=== PATIENT | female | born 1960 | race Caucasian/White ===

== ENCOUNTER 2019-08-20 07:15 | Outpatient (CLI) | payer OTHER, SELFPAY ==
[2019-08-20 08:07] LABS: Albumin Level 4.3 g/dL (3.5-5.1); Blood Urea Nitrogen 17 mg/dL (7-17); Calcium 9.7 mg/dL (8.4-10.2); Carbon Dioxide 28 mmol/L (22-30); Chloride 108 mmol/L (98-107); Cholesterol 208 mg/dL (0-200); Estimated Glomerular Filt Rate > 60; Glucose 76 mg/dL (65-105); LDL Cholesterol Direct 67 mg/dL; Parathyroid Intact 154.7 pg/mL (7.5-53.5); Phosphorus 2.7 mg/dL (2.5-4.5); Sodium 140 mmol/L (137-145); Triglycerides 45 mg/dL (<150)
[2019-08-20 08:11] LABS: HDL Direct 129 mg/dL
[2019-08-20 08:28] LABS: Creatinine Urine 47.7 mg/dL
[2019-08-20 08:33] LABS: MALB Creatinine Ratio 25.4 mg/g (0-30); Microalbumin Urine Random 12.1 mg/L (0-16.7)
[2019-08-20 08:44] LABS: Vitamin D 25 Hydroxy 45.3 ng/mL
[2019-08-22 17:40] LABS: Ionized Calcium 5.6 mg/dL (4.8-5.6)
== END 2019-08-20 07:16 | disposition home or self-care (01) ==
PROVIDERS: Visit Provider Internal Medicine Endocrinology, Diabetes & Metabolism
DX: E10.65 Type 1 diabetes mellitus with hyperglycemia (principal); E21.3 Hyperparathyroidism, unspecified; M81.8 Other osteoporosis without current pathological fracture
CPT/HCPCS: 36415; 80061; 80069; 82043; 82306; 82330; 83970

== ENCOUNTER 2020-10-11 07:30 | Outpatient (CLI) | payer OTHER, SELFPAY ==
[2020-10-11 08:20] LABS: Parathyroid Intact 162.4 pg/mL (7.5-53.5)
[2020-10-11 08:28] LABS: LDL Cholesterol Direct 81 mg/dL
[2020-10-11 08:29] LABS: Albumin Level 4.2 g/dL (3.5-5.1); Anion Gap 5 mmol/L (8-16); Blood Urea Nitrogen 18 mg/dL (7-17); Carbon Dioxide 28 mmol/L (22-30); Chloride 102 mmol/L (98-107); Cholesterol 255 mg/dL (0-200); Estimated Glomerular Filt Rate > 60; Glucose 127 mg/dL (65-110); Phosphorus 2.9 mg/dL (2.5-4.5); Potassium 3.7 mmol/L (3.4-5.0); Sodium 135 mmol/L (137-145); Triglycerides 52 mg/dL (<150)
[2020-10-11 08:48] LABS: Vitamin D 25 Hydroxy 32.2 ng/mL
[2020-10-11 09:15] LABS: HDL Direct 164 mg/dL
[2020-10-11 10:29] LABS: Creatinine Urine 76.8 mg/dL
[2020-10-11 10:32] LABS: Microalbumin Urine Random 14.6 mg/L (0-16.7)
== END 2020-10-11 07:31 | disposition home or self-care (01) ==
LOC: ANHLAB 07:33
PROVIDERS: Visit Provider Internal Medicine Endocrinology, Diabetes & Metabolism
DX: E10.65 Type 1 diabetes mellitus with hyperglycemia (principal); E21.3 Hyperparathyroidism, unspecified; M81.8 Other osteoporosis without current pathological fracture
CPT/HCPCS: 36415; 80061; 80069; 82043; 82306; 83970

== ENCOUNTER 2021-06-17 07:28 | Outpatient (CLI) | payer OTHER, SELFPAY ==
[2021-06-17 08:06] LABS: Albumin Level 4.1 g/dL (3.5-5.1); Anion Gap 2 mmol/L (8-16); Blood Urea Nitrogen 17 mg/dL (7-17); Carbon Dioxide 30 mmol/L (22-30); Chloride 104 mmol/L (98-107); Cholesterol 243 mg/dL (0-200); Estimated Glomerular Filt Rate > 60; Glucose 156 mg/dL (65-110); Phosphorus 2.4 mg/dL (2.5-4.5); Potassium 3.9 mmol/L (3.4-5.0); Sodium 136 mmol/L (137-145); Triglycerides 48 mg/dL (<150)
[2021-06-17 08:16] LABS: LDL Cholesterol Direct 70 mg/dL; Parathyroid Intact 130.4 pg/mL (7.5-53.5)
[2021-06-17 08:32] LABS: HDL Direct 141 mg/dL
[2021-06-17 08:59] LABS: Microalbumin Urine Random < 6.0 mg/L (0-16.7)
[2021-06-17 09:06] LABS: Vitamin D 25 Hydroxy 30.8 ng/mL
[2021-06-21 13:57] LABS: Calcium/Creatinine Ratio, Ur 210 mg/g creat (10-320); Urine Creatinine, Random 29 mg/dL (20-275)
== END 2021-06-17 07:29 | disposition home or self-care (01) ==
LOC: ANHLAB 07:30
PROVIDERS: PCP Family Medicine; Visit Provider Nurse Practitioner Family
DX: E11.65 Type 2 diabetes mellitus with hyperglycemia (principal); E21.3 Hyperparathyroidism, unspecified; E78.5 Hyperlipidemia, unspecified; M81.8 Other osteoporosis without current pathological fracture; Z79.4 Long term (current) use of insulin; Z98.890 Other specified postprocedural states
CPT/HCPCS: 36415; 80061; 80069; 82043; 82306; 82310; 82570; 83970

== ENCOUNTER 2022-02-22 23:10 | Inpatient (IN) | payer OTHER, SELFPAY ==
--- NOTE | ~2022-02-22 | CT_ITS ---
Non-contrast Head CT History: Right-sided weakness, slurred speech COMPARISON: 10/11/2004 Technique: Axial non-contrast imaging of the brain was performed. Dose reduction technique was used on this scan by utilizing automated exposure control and iterative reconstruction technique. The dose -length product (DLP) was 681.00 mGy-cm. Findings: Chronic right cerebellar infarct noted. There is a focal hyperdensity in the right cerebell um (axial image 14). No supratentorial abnormality seen. The ventricles and subarachnoid spaces are n ormal in size. The calvarium appears normal. The visualized paranasal sinuses and mastoid air cells are clear. Impression: Tiny focal hyperdensity in the right cerebellum, which could reflect focal acute hemorrhage versus ca lcification. Follow-up exam advised. Probable chronic underlying right cerebellar infarct. Reviewed, dictated and finalized at [facility]. 3 PASTRY Impression: Tiny focal hyperdensity in the right cerebellum, which could reflect focal acut e hemorrhage versus calcification. Follow-up exam advised. Probable chronic underlying right cerebellar infarct.
--- NOTE | ~2022-02-22 | CT_ITS ---
Non-contrast Head CT History: Intracranial hemorrhage COMPARISON: 02/22/2022 Technique: Axial non-contrast imaging of the brain was performed. Dose reduction technique was used on this scan by utilizing automated exposure control and iterative reconstruction technique. The dose -length product (DLP) was 681.00 mGy-cm. Findings: The focal hyperdensity in the right cerebellar hemisphere presumably minimally increased fr om prior exam. Stable probable underlying chronic right cerebellar infarct. Again, no supratentorial abnormality identified. The ventricles and subarachnoid spaces are normal in size. The calvarium khadra ears normal. The visualized paranasal sinuses and mastoid air cells are clear. Impression: Suspected minimal interval increase in the focal hyperdensity in the right cerebellar hemisphere, whi ch could reflect a focal hemorrhage given suspected interval change. There is now measures up to 7 mm in diameter. Additional follow-up exam advised. Reviewed, dictated and finalized at [facility]. ON CLERK Impression: Suspected minimal interval increase in the focal hyperdensity in the right cere bellar hemisphere, which could reflect a focal hemorrhage given suspected inter pattie change. There is now measures up to 7 mm in diameter. Additional follow-up exam advised.
--- NOTE | ~2022-02-22 | CT_ITS ---
CT ANGIOGRAM NECK AND HEAD History: Right arm weakness, dysarthria. Technique: Serial spiral axial images through the head and neck were obtained during arterial phase I V injection of 100 cc of Omnipaque 350. 3-D postprocessing and MIP images were then reconstructed on the remote workstation. Dose reduction technique was used on this scan by utilizing automated exposur e control and iterative reconstruction technique. The dose-length product (DLP) was 898.59 mGy-cm. CTA neck findings: Bilateral common carotid, internal carotid, and external carotid arteries are pat ent. The proximal right internal carotid artery demonstrates 0% stenosis relative to the normal dista l artery lumen diameter. The proximal left internal carotid artery demonstrates 0% stenosis relative to the normal distal artery lumen diameter. Bilateral vertebrals are patent, with relatively hypoplastic right vertebral artery. Evidence of prior right hemithyroidectomy. CTA head findings: Distal internal carotid arteries, middle cerebral arteries, anterior cerebral graciela anastasiia are patent. Suggestion 2 mm aneurysm at the junction of the anterior communicating artery and th e left anterior cerebral artery. Basilar artery and posterior cerebral arteries are patent. No stenos is or large vessel occlusion. Impression: No stenosis or large vessel occlusion. 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 Reviewed, dictated and finalized at location . MEL SELECTOR Impression: No stenosis or large vessel occlusion. 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
--- NOTE | ~2022-02-22 | MR_ITS ---
MRI of the brain Clinical History: Cerebellar hemorrhage Technique: Axial and sagittal T1-weighted images were acquired. These were followed by axial T2-weigh mayra, diffusion weighted, gradient, and FLAIR images. Following intravenous administration of 9 cc Mul tiHance gadolinium, T1-weighted fat-sat imaging was performed in the axial and coronal planes. Findings: There is a 1 cm area of restricted diffusion in the left periventricular white matter, comp atible with an acute infarct (series 3 image 19 for example). There are additional mild scattered are as of FLAIR hyperintensity in the white matter, compatible mild chronic microvascular ischemic change . Chronic right cerebellar infarcts are noted, with intrinsic T1 hyperintensity about the infarct. No d istinct susceptibility artifact corresponding to the CT finding. Ventricles and subarachnoid spaces are unremarkable. Orbits are unremarkable. Paranasal sinuses and m astoid air cells are clear. Major intracranial flow voids appear intact. Sagittal midline structures are intact. No abnormal postcontrast enhancement identified. IMPRESSION: 1 cm acute infarct in the left periventricular matter. Chronic right cerebellar infarct. Focal hyperdensity seen on CT is felt to most likely reflect focal dystrophic calcification and/or chronic focal hemorrhagic material related to the prior infarct rathe r than acute hemorrhage. Consider additional short-term follow-up CT scan. Interval change between th e [address] scans may been due to slice selection/patient positioning given the small size of the f inding. Mild chronic white matter changes. Reviewed, dictated and finalized at location [facility]. ER IMPRESSION: 1 cm acute infarct in the left periventricular matter. Chronic right cerebellar infarct. Focal hyperdensity seen on CT is felt to most likely reflect focal dystrophic calcification and/or chronic focal hemorrhagic material related to the prior infarct rather than acute hemorrhage. Consider a dditional short-term follow-up CT scan. Interval change between the [address] scans may been due to slice selection/patient positioning given the small size of the finding. Mild chronic white matter changes.
--- NOTE | 2022-02-22 23:14 | ED.NEUROSD ---
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 LKW 45 minutes prior to arrival. The report patient appears to be improving. Patient states she does feel some weakness in the right arm but has no other complaints. <Gildardo De Leon MD - Last Filed: 02/23/22 07:42> Related Data Home Medications: Home Medications Medication Instructions Recorded Confirmed famotidine 20 mg tablet (Pepcid) 20 mg PO DAILY 02/23/19 03/03/21 lancets 33 gauge (BD Ultra Fine #100 ea 02/23/19 03/03/21 Lancets) vitamins A,C,D-hqpl-hgafri 14,320 1 cap PO BID 02/23/19 03/03/21 unit-226 mg-200 unit capsule (PreserVision AREDS) cholecalciferol (vitamin D3) 50 50 mcg PO DAILY 12/11/19 03/03/21 mcg (2,000 unit) capsule multivitamin 1 tablet PO DAILY 12/11/19 03/03/21 omega-3 fatty acids 1,000 mg 1,000 mg PO DAILY 03/03/21 03/03/21 capsule (Fish Oil Concentrate) fluticasone propionate 50 1 spray intranasal DAILY 06/09/21 mcg/actuation nasal spray,suspension (Flonase Allergy Relief) <Gildardo De Leon MD - Last Filed: 02/23/22 07:42> Allergies/Adverse Reactions: Allergies Allergy/AdvReac Type Severity Reaction Status Date / Time No Known Allergies Allergy Verified 06/09/21 08:04 <Gildardo De Leon MD - Last Filed: 02/23/22 07:42> Review of Systems Review of Systems: CONSTITUTIONAL: Denies fever, chills, or sweats. EYES: Denies visual changes, redness, or discharge. ENT: Denies rhinorrhea, congestion, sore throat, or otalgia. CARDIOVASCULAR: Denies chest pain, palpitations, or edema. RESPIRATORY: Denies cough or dyspnea. GASTROINTESTINAL: Denies abdominal pain, nausea, vomiting, or diarrhea. GENITOURINARY: Denies dysuria or hematuria. SKIN: Denies rash or itching. MUSCULOSKELETAL: Denies back pain, joint pain, or myalgia. NEUROLOGIC: Right arm weakness, slurred speech - improvin denies headache, numbness, dizziness, PSYCHIATRIC: Denies anxiety or depression. <Gildardo De Leon MD - Last Filed: 02/23/22 07:42> [facility] Past Medical History Medical History: Medical History Cancer of retina of right eye Chronic GERD Essential (primary) hypertension Hypothyroidism Kidney stones Osteoporosis Type 1 diabetes mellitus Type 2 diabetes mellitus with hyperglycemia <Gildardo De Leon MD - Last Filed: 02/23/22 07:42> Surgical History Surgical History: Surgical History H/O thyroidectomy History of bladder surgery History of eye surgery no right eye History of hysterectomy <Gildardo De Leon MD - Last Filed: 02/23/22 07:42> Family History Family History: Family History Other Family history of malignant neoplasm of urinary bladder <Gildardo De Leon MD - Last Filed: 02/23/22 07:42> Social History Social History: Social History Second hand tobacco smoke exposure: No Alcohol intake: current Alcohol use details: occasional Substance use: never 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
[2022-02-22 23:21] LABS: Glucose Point of Care 266 mg/dl (65-105)
[2022-02-22 23:24] VITALS: BP 150/89; PULSE 91; RESP 14; TEMP 36.8; O2SAT 99
[2022-02-22 23:32] VITALS: O2SAT 98
--- NOTE | 2022-02-22 23:43 | PC.NURSE ---
Per VORB EDEusebia De Leon, give 10mg IV push Labetalol STAT. Target BP under 140s systolic.
--- NOTE | 2022-02-22 23:43 | PC.NURSE ---
Per EDP Moises, give 10mg IV push Labetalol. Target systolic BP 140s.
[2022-02-22] MEDS: LABETALOL HCL INJ 100 MG/20 ML VIAL 10 MG IV PUSH (23:47)
[2022-02-22 23:52] LABS: Basophils Absolute Auto 0.1 K/mm3 (0.0-0.1); Eosinophils Absolute Auto 0.1 K/mm3 (0-0.3); Eosinophils Percent Auto 1.5 % (0-4.4); Hematocrit 36.2 % (37.0-47.0); Immature Granulocyte Absolute 0.02 K/mm3 (0.00-0.031); Immature Granulocyte Percent A 0.2 % (0-0.5); Lymphocytes Absolute Auto 3.28 K/mm3 (0.9-3.2); Lymphocytes Percent Auto 36.2 % (18.3-44.2); Mean Corpuscular HGB Conc 33.1 g/dl (32-36); Mean Corpuscular Hemoglobin 32.7 pg (26-34); Mean Corpuscular Volume 98.6 fl (80-100); Mean Platelet Volume 9.2 fl (7.4-10.4); Monocytes Absolute Auto 0.8 K/mm3 (0.1-0.6); Monocytes Percent Auto 9.3 % (2.6-8.5); Neutrophils Absolute Auto 4.7 K/mm3 (1.3-6.7); Neutrophils Percent Auto 51.8 % (45.5-73.1); Platelet Count Result 380 k/mm3 (150-375); Red Blood Count 3.67 M/mm3 (4.2-5.4); Red Cell Distribution Width 13.9 % (11.5-14.5); White Blood Count 9.1 K/mm3 (4.5-10.0)
[2022-02-23] VITALS (46 sets, daily range): BP systolic 117–164; BP diastolic 55–87; PULSE 71–89; RESP 11–20; O2SAT 97–100
[2022-02-23 00:03] LABS: Alanine Aminotransferase 24 U/L (6-35); Albumin Level 4.3 g/dL (3.5-5.1); Alkaline Phosphatase 72 U/L (38-126); Anion Gap 6 mmol/L (8-16); Aspartate Amino Transferase 33 U/L (14-36); Bilirubin,Total 0.4 mg/dL (0.2-1.3); Blood Urea Nitrogen 22 mg/dL (7-17); Calcium 9.9 mg/dL (8.4-10.2); Carbon Dioxide 29 mmol/L (22-30); Chloride 101 mmol/L (98-107); Estimated Glomerular Filt Rate > 60; Glucose 229 mg/dL (65-110); Potassium 3.5 mmol/L (3.4-5.0); Sodium 136 mmol/L (137-145)
[2022-02-23 00:07] LABS: Ethanol < 10 mg/dL (<10)
[2022-02-23 00:14] LABS: Troponin I < 0.012 ng/mL (0.000-0.034)
[2022-02-23 00:18] LABS: Prothrombin Time 12.6 Seconds (11.1-14.7)
[2022-02-23 00:19] LABS: Partial Thromboplastin Time 33.6 SECONDS (22.3-36.8)
[2022-02-23 00:28] LABS: Influenza A QL RT-PCR Negative (Negative); Influenza B QL RT-PCR Negative (Negative); RSV RNA, RT-PCR Negative (Negative); SARS-CoV-2 RNA PCR Negative
[2022-02-23 02:28] LABS: Add Urine Microscopic? YES; Appearance Urine Clear (Clear); Bilirubin Urine 1+ (Negative); Blood Urine Negative (Negative); Color Urine Light Yellow (Yellow); Glucose Urine UA 3+ mg/dL (Negative); Ketones Urine 1+ mg/dL (Negative); Leukocyte Esterase Ur Negative LEU/UL (Negative); Nitrate Urine Negative (Negative); Protein Urine Negative (Negative); Specific Grav Ur 1.015 (1.001-1.035); Urobilinogen Urine 0.2 mg/dL (<2.0)
[2022-02-23 02:39] LABS: Amphetamine Screen Urine Negative (Negative); Barbiturate Screen Urine Negative (Negative); Benzodiazepines Screen Urine Negative (Negative); Cannabinoid Screen Urine Negative (Negative); Cocaine Screen Urine Negative (Negative); Methadone Screen Urine Negative (Negative); Opiate Screen Urine Negative (Negative); Phencyclidine Screen Urine Negative (Negative)
--- NOTE | 2022-02-23 02:59 | PC.NURSE ---
Report given to Jace MAGALLANES
[2022-02-23 03:07] LABS: Bacteria Urine Trace /hpf; Mucus Urine Rare /lpf; Squamous Epithelial Cell Urine Moderate /hpf (Few); WBC Urine 31-50 /hpf
--- NOTE | 2022-02-23 03:34 | ECG_ITS ---
Measurements Intervals Morgan Rate: 88 P: 59 LA: 130 QRS: 91 QRSD: 131 T: 4 QT: 377 QTc: 458 Interpretive Statements SINUS RHYTHM LEFT ATRIAL ENLARGEMENT RIGHT BUNDLE BRANCH BLOCK T-WAVE ABNORMALITY, CONSIDER ANTEROLATERAL ISCHEMIA ABNORMAL ECG NO PREVIOUS ECG AVAILABLE FOR COMPARISON Electronically Signed On 02-23-2022 17:43:57 STAVE LOG RIPSAW OPERATOR by Trevor Pandya M.D.
--- NOTE | 2022-02-23 06:10 | PC.NURSE ---
called [facility] transfer center for a status check. Per Abby - There is no bed assigned yet and [facility] is still at capacity. Will be waiting on discharges.
--- NOTE | 2022-02-23 12:22 | PC.NURSE ---
Spoke with Kasandra at [facility] with updated VS. Pt is still on waiting list for bed on step down unit.
--- NOTE | 2022-02-23 12:22 | PC.NURSE ---
called at 1217 still wating for step down bed.
[2022-02-23] MEDS: ACETAMINOPHEN 500 MG TABLET 1000 MG PO (18:06)
[2022-02-23 18:13] LABS: Glucose Point of Care 182 mg/dl (65-105)
[2022-02-23] MEDS: INSULIN GLARGINE (*BKC) 100 UNITS/ML 12 UNITS SUB-Q (22:13)
[2022-02-24] VITALS (8 sets, daily range): BP systolic 118–179; BP diastolic 63–99; PULSE 68–84; RESP 14–20; TEMP 36.1–36.4; O2SAT 97–100
--- NOTE | 2022-02-24 02:59 | PC.NURSE ---
Nurse report given to Salud MAGALLANES
--- NOTE | 2022-02-24 08:45 | PC.NURSE ---
Patient off unit to MRI.
[2022-02-24 10:16] LABS: Glucose Point of Care 255 mg/dl (65-105)
--- NOTE | 2022-02-24 11:07 | PC.NURSE ---
Patient report given to SONA Giraldo. All questions answered and care of patient transferred.
[2022-02-24] MEDS: CHOLECALCIFEROL 1,000 UNITS TABLET 2000 UNITS PO (11:16)
[2022-02-24] MEDS: ROSUVASTATIN 5 MG TABLET PO (11:17)
[2022-02-24] MEDS: ASPIRIN 81 MG ENTERIC TABLET PO (11:17)
[2022-02-24] MEDS: MULTIVITAMINS THERAPEUTIC TAB (*BKC) 1 TABLET PO (11:17)
[2022-02-24 11:25] LABS: Cholesterol 259 mg/dL (0-200); Triglycerides 165 mg/dL (<150)
[2022-02-24] MEDS: INSULIN ASPART (*BKC) 100 UNITS/ML SUB-Q ×4 (11:29→17:19)
[2022-02-24] MEDS: ASPIRIN 81 MG CHEWABLE TABLET 324 MG PO (11:30)
[2022-02-24 11:35] LABS: LDL Cholesterol Direct 103 mg/dL
[2022-02-24 12:49] LABS: Glucose Point of Care > 500 mg/dl (65-105)
[2022-02-24 12:49] LABS: Glucose Point of Care 477 mg/dl (65-105)
--- NOTE | 2022-02-24 12:51 | PM.IMHP ---
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 She did have any weakness in the legs or on the left side of the body. She does not have any history of stroke in the past. Her NIH SS scale was 2. CT brain showed chronic appearing right cerebellar ischemic stroke with 6 mm hyperdensity concerning for hemorrhage. CTA was done which showed no evidence of vessel occlusion. 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 Repeat CT head concerning for slightly enlarged hypodensity in the cerebellum now measuring 7 mm. See was planned to go to [facility] for intracerebral bleed. While waiting for the bed she had MRI of the brain done which showed her hyperdensity is related to focal dystrophic calcification and are chronic focal hemorrhagic material related to prior infarct breath with an acute hemorrhage. She was noted to have 1 cm acute infarct in the left periventricular matter. She is planned to be admitted here instead for further evaluation and management. Review of Systems Review of Systems: - CONSTITUTIONAL: Denies weight loss, fever and chills. - HEENT: Denies changes in vision and hearing - RESPIRATORY: Denies SOB and cough. - CV: Denies palpitations and CP. - GI: Denies abdominal pain, nausea, vomiting and diarrhea. - : Denies dysuria and urinary frequency. - MSK: Denies myalgia and joint pain. - SKIN: Denies rash and pruritus. - NEUROLOGICAL: Denies headache and syncope. Reports right-sided upper extremity numbness and weakness - PSYCHIATRIC: Denies recent changes in mood. Denies anxiety and depression. [facility] Past Medical History Medical History Cancer of retina of right eye Chronic GERD Essential (primary) hypertension Hypothyroidism Kidney stones Osteoporosis Type 1 diabetes mellitus Type 2 diabetes mellitus with hyperglycemia Surgical History Surgical History H/O thyroidectomy History of bladder surgery History of eye surgery no right eye History of hysterectomy Family History Family History Other Family history of malignant neoplasm of urinary bladder Social History Social History Second hand tobacco smoke exposure: No Alcohol intake: current Alcohol use details: occasional Substance use: never 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[employer] Gender identity (if verbalized by the patient): Female Meds Home Medications and Allergies Home Medications Medication Instructions Recorded Confirmed Type famotidine 20 mg tablet (Pepcid) 20 mg PO BID 02/23/19 02/24/22 History lancets 33 gauge (BD Ultra Fine #100 ea 02/23/19 03/03/21 History Lancets) cholecalciferol (vitamin D3) 50 50 mcg PO DAILY 12/11/19 02/24/22 History mcg (2,000 unit) capsule multivitamin 1 tablet PO DAILY 12/11/19 02/24/22 History blood sugar diagnostic (ReliOn #400 ea 03/03/21 03/03/21 Rx Prime Test Strips) lancets #400 ea 03/03/21 03/03/21 Rx rosuvastatin 5 mg tablet 5 mg PO DAILY #90 tabs 03/03/21 02/24/22 Rx valsartan 40 mg tablet 40 mg PO BID 90 days #180 tabs 03/03/21 02/24/22 Rx flash glucose sensor (FreeStyle #6 ea 03/13/21 Rx Shun 2 Sensor kit) fluticasone propionate 50 1 spray intranasal DAILY PRN 06/09/21 02/24/22 History mcg/actuation nasal All
[2022-02-24 12:59] LABS: HDL Direct 117 mg/dL
--- NOTE | 2022-02-24 12:59 | PC.NURSE ---
Dr. Castillo made aware of pt's blood sugar of [address] Castillo, to give 4 more units of Novolog. VORB.
[2022-02-24 14:10] LABS: Hemoglobin A1C 8.7 % (<5.7)
--- NOTE | 2022-02-24 14:19 | ADMGEN ---
This patient, Paulette Ott, was admitted to [facility] Surg Room 310-01. Patient/family oriented to hospital policies and general routines including ID bracelet, bed and alarms, visiting hours, pain management, procedures, bathroom and other care routines, personal items, smoking policy, room service/diet, and visiting hours. Information on how to activate the Rapid Response Team has been discussed. Patient/Family are encouraged to report perceived risks to care and to ask questions if they do not understand what they are told or what they should do.
[2022-02-24 15:18] LABS: Glucose Point of Care 331 mg/dl (65-105)
[2022-02-24] MEDS: VALSARTAN 40 MG TABLET PO (16:28)
[2022-02-24] MEDS: FAMOTIDINE 20 MG TABLET PO (16:28)
[2022-02-24 16:36] LABS: Glucose Point of Care 332 mg/dl (65-105)
[2022-02-24] MEDS: INSULIN GLARGINE (*BKC) 100 UNITS/ML 12 UNITS SUB-Q (21:04)
[2022-02-24] MEDS: ROSUVASTATIN 10 MG TABLET 20 MG PO (21:04)
[2022-02-25] VITALS (9 sets, daily range): BP systolic 113–146; BP diastolic 60–80; PULSE 77–101; RESP 14–20; TEMP 35.6–36.8; O2SAT 94–97
[2022-02-25 07:04] LABS: Basophils Absolute Auto 0.1 K/mm3 (0.0-0.1); Basophils Percent Auto 0.8 % (0.2-1.2); Eosinophils Absolute Auto 0.1 K/mm3 (0-0.3); Eosinophils Percent Auto 1.3 % (0-4.4); Hematocrit 37.4 % (37.0-47.0); Hemoglobin 12.5 g/dL (12.0-15.0); Immature Granulocyte Absolute 0.02 K/mm3 (0.00-0.031); Immature Granulocyte Percent A 0.2 % (0-0.5); Lymphocytes Absolute Auto 2.73 K/mm3 (0.9-3.2); Mean Corpuscular HGB Conc 33.4 g/dl (32-36); Mean Corpuscular Hemoglobin 33.2 pg (26-34); Mean Corpuscular Volume 99.2 fl (80-100); Mean Platelet Volume 9.4 fl (7.4-10.4); Monocytes Absolute Auto 0.8 K/mm3 (0.1-0.6); Monocytes Percent Auto 9.2 % (2.6-8.5); Neutrophils Absolute Auto 4.6 K/mm3 (1.3-6.7); Neutrophils Percent Auto 55.5 % (45.5-73.1); Platelet Count Result 382 k/mm3 (150-375); Red Blood Count 3.77 M/mm3 (4.2-5.4); Red Cell Distribution Width 13.7 % (11.5-14.5); White Blood Count 8.3 K/mm3 (4.5-10.0)
[2022-02-25 07:11] LABS: Alanine Aminotransferase 22 U/L (6-35); Albumin Level 4.1 g/dL (3.5-5.1); Alkaline Phosphatase 68 U/L (38-126); Anion Gap 7 mmol/L (8-16); Aspartate Amino Transferase 26 U/L (14-36); Bilirubin,Total 0.4 mg/dL (0.2-1.3); Blood Urea Nitrogen 11 mg/dL (7-17); Calcium 9.4 mg/dL (8.4-10.2); Carbon Dioxide 27 mmol/L (22-30); Chloride 105 mmol/L (98-107); Estimated Glomerular Filt Rate > 60; Glucose 108 mg/dL (65-110); Magnesium 1.6 mg/dL (1.6-2.3); Potassium 3.6 mmol/L (3.4-5.0); Sodium 139 mmol/L (137-145)
[2022-02-25 07:19] LABS: Glucose Point of Care 112 mg/dl (65-105)
[2022-02-25] MEDS: INSULIN ASPART (*BKC) 100 UNITS/ML SUB-Q ×5 (08:18→17:25)
[2022-02-25] MEDS: VALSARTAN 40 MG TABLET PO ×2 (08:19→17:26)
[2022-02-25] MEDS: FAMOTIDINE 20 MG TABLET PO ×2 (08:19→17:25)
[2022-02-25] MEDS: CHOLECALCIFEROL 1,000 UNITS TABLET 2000 UNITS PO (08:19)
[2022-02-25] MEDS: MULTIVITAMINS THERAPEUTIC TAB (*BKC) 1 TABLET PO (08:20)
[2022-02-25] MEDS: ASPIRIN 81 MG ENTERIC TABLET PO (08:20)
[2022-02-25 12:02] LABS: Glucose Point of Care 254 mg/dl (65-105)
--- NOTE | 2022-02-25 13:06 | WPDNEURCNPN ---
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 Diabetes mellitus 3. Hyperlipidemia will need a cardiac studies as planned and also discussion about the aneurysm with the patient and the family for further clarification. Consult date: 02/25/22 HPI: Paulette Ott is a 61 year old female admitted to the hospital through the emergency room for the complaints of possible cerebrovascular accident in addition to the history of underlying 1. Diabetes mellitus 2. Hypertension 3. Hyperlipidemia. 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 She does have ongoing history of cancer of the retina of the right eye and is blind in her right eye in addition to the history of diabetes mellitus, and hypothyroidism. She drinks alcohol only occasionally on initial examination in the ER she was noted to have 4/5 strength in the right upper extremity with normal vital signs normal routine lab but blood sugar of 229 screening for the influenza is 80 be RSV and starts COVID were negative psoas the drug screen. The CT scan of the head documented suspected minimal interval increase in the frontal hyperdensity in the right cerebellar hemisphere raising the possibility of focal hemorrhage of up to 7mm in diameter and this study has been followed by the MRI of the head today which documented 1cm acute infarct in left periventricular matter with chronic right cerebellar infarct and the hypodensity seen on CT scan reflected dystrophic calcification a chronic focal hemorrhagic material related to the previous infarct Review of Systems Review of Systems: All systems reviewed & are unremarkable except as noted in HPI and below PMFSH Past Medical History Medical History Cancer of retina of right eye Chronic GERD Essential (primary) hypertension Hypothyroidism Kidney stones Osteoporosis Type 1 diabetes mellitus Type 2 diabetes mellitus with hyperglycemia Surgical History Surgical History H/O thyroidectomy History of bladder surgery History of eye surgery no right eye History of hysterectomy Family History Family History Other Family history of malignant neoplasm of urinary bladder Social History Social History Smoking status: Former smoker Second hand tobacco smoke exposure: No Additional smoking assessment comments: smoked off and on for years Alcohol intake: current Drinks per week: 1 Alcohol use details: occasional Substance use: never Substance use type: does not use Lack of Transportation: No Lack of Food: Never True Current Housing: I Have Housing Concerned About Future Housing: No Difficulty Paying Gas/Electric Bills: No Difficulty Paying for Meds: No Currently Unemployed: No Education: Bachelor's Degree Difficulty w/ Childcare or Family Care: No 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
--- NOTE | 2022-02-25 14:05 | PM.IMPN ---
Progress Note: A&P Assessment and Plan (1) Right arm weakness: Code(s): R29.898 - Other symptoms and signs involving the musculoskeletal system Status: Acute (2) Dysarthria: Code(s): R47.1 - Dysarthria and anarthria Status: Acute (3) Acute ischemic stroke: Code(s): I63.9 - Cerebral infarction, unspecified Status: Acute (4) Type 1 diabetes mellitus: Qualifiers: Diabetes mellitus complication status: with hyperglycemia Qualified Code(s): E10.65 - Type 1 diabetes mellitus with hyperglycemia Code(s): E10.9 - Type 1 diabetes mellitus without complications Status: Acute (5) Cerebellar infarction: Code(s): I63.9 - Cerebral infarction, unspecified Status: Acute Plan Acute left periventricular matter infarction: Initially suspected right cerebellar hemorrhage with hyperdensity. Brain MRI suggest focal dystrophic calcification and or are chronic focal hemorrhagic material related to prior infarct rather than acute hemorrhage. Started on aspirin 325 mg followed by aspirin 81 mg daily. Neurology to see. Echo pending CTA head and neck with no stenosis or large vessel occlusion. Aspirin and Crestor as ordered. Probable 2 mm aneurysm at the junction of anterior communicating artery and left anterior cerebral artery. Need follow-up as an outpatient basis Type 1 diabetes mellitus: Continue Lantus and lispro with 6 SSI Hypertension valsartan to continue blood pressure not at goal. Will add amlodipine 5 mg daily Hyperlipidemia on rosuvastatin 5 mg will increase to 20 mg. LDL is 103. Total cholesterol 259 and triglyceride 165. DVT prophylaxis: SCDs Subjective Date/time seen: 02/25/22 14:05 Interval history: No overnight events. Right and the little stronger still weak though. Discussed with Neurology. Review of Systems Review of Systems: All systems reviewed & are unremarkable except as noted in HPI and below Exam Narrative: GENERAL: thin built, well-nourished, and in no acute distress. HEAD: Normocephalic, atraumatic. EYES:Left eye? PRRLA and EOMI. Right eye false with small amount of mucoid drainage, no noted erythema ENT: Nares clear, no rhinorrhea or epistaxis.? NECK: Supple.? No adenopathy or masses.? No carotid bruits or JVD CHEST: Clear to auscultation.? No respiratory distress.? No wheezes rales or rhonchi HEART: Regular rate and rhythm.? No murmur heard.? Normal peripheral pulses. ABDOMEN: Soft, nontender, nondistended, normal active bowel sounds. EXTREMITIES: Normal range of motion.? No edema. SKIN: Warm, dry, no rash. 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 PSYCH: Normal mood and affect Objective Data Vital Signs Vital Signs: Vital Signs - 24 hr 02/24/22 14:47 02/24/22 16:00 02/24/22 16:00 Temperature Pulse Rate 81 81 Respiratory Rate Blood Pressure Pulse Oximetry Oxygen Delivery Room Air 02/24/22 16:00 02/24/22 21:31 02/24/22 20:00 Temperature 97.0 F L Pulse Rate 83 73 Respiratory Rate 14 Blood Pressure 149/73 H 124/71 Pulse Oximetry 100 Oxygen Delivery 02/25/22 00:00 02/25/22 05:58 02/25/22 10:26 Temperature 98.3 F Pulse Rate 83 96 Respiratory Rate 14 Blood Pressure 146/80 H Pulse Oximetry 96 96 Oxygen Delivery Room Air Intake/Output Intake/Output: Intake & Output 02/22/22 02/23/22 02/24/22 02/25/22 23:59 23:59 23:59 23:59 Intake Total 240 1460 Balance 240 1460 Meds/Results Medications: Active Medications Generic Name Dose Route Start Last Admin Trade Name Freq PRN Reason Stop Dose Admin Acetaminophen 650 mg 02/24/22 05:48 Acetaminophen 325 Mg Tablet PO Q4H PRN Mild Pain (1-3) or Fever Hydrocodone Bitart/Acetaminophen 1 tab 02/24/22 05:48 Hydrocodone/Acetaminophen (*Crx) 5-325 Mg Tablet PO Q4H PRN Pain Rated 4-6 Aspirin 81 mg 02/24
[2022-02-25] MEDS: amLODIPine BESYLATE 5 MG TABLET PO (14:52)
[2022-02-25 16:45] LABS: Glucose Point of Care 206 mg/dl (65-105)
[2022-02-25] MEDS: ROSUVASTATIN 10 MG TABLET 20 MG PO (20:19)
[2022-02-25] MEDS: INSULIN GLARGINE (*BKC) 100 UNITS/ML 12 UNITS SUB-Q (20:26)
[2022-02-25 21:27] LABS: Glucose Point of Care 123 mg/dl (65-105)
[2022-02-26] VITALS (7 sets, daily range): BP systolic 113–120; BP diastolic 67–70; PULSE 65–90; RESP 16–18; TEMP 36.6; O2SAT 97–99
--- NOTE | 2022-02-26 | ECHO_ITS ---
Patient Info Name: Paulette Ott Age: 61 years : 1960 Gender: Female Ht: 58 in Wt: 105 lbs BSA: 1.40 m2 HR: 83 bpm BP: 146 / 80 mmHg Heart Rhythm: Sinus Rhythm Technical Quality: Good Exam Date: 02/26/2022 10:56 AM Exam Location: [facility] Patient Status: Inpatient Admit Date: 02/24/2022 Staff Ordering Physician: Austyn Castillo MD Network Development Coordinator: Yanna Vilchis RDCS Attending Provider: Austyn Castillo MD Exam Type: CA echo doppler color flow Study Info Indications - STROKE Complete two-dimensional, color flow and Doppler transthoracic echocardiogram is performed. Summary 1. Complete two-dimensional, color flow and Doppler transthoracic echocardiogram is performed. 2. Normal left ventricular size and systolic function. 3. Diastolic noncompliance grade 1. 4. No valvular dysfunction. Left Ventricle Left ventricular chamber dimension is normal. Left ventricular systolic function is hyperdynamic, estimated at >70%. Left ventricular septal wall motion is abnormal with septal motion related to bundle branch block. The left ventricular diastolic function is grade I diastolic dysfunction. Right Ventricle Right ventricular chamber dimension is normal. Left Atria Left atrial chamber dimension is normal. Right Atria Right atrial chamber dimension is normal. Aortic Valve The aortic valve is normal. Pulmonic Valve The pulmonic valve is not well visualized. Mitral Valve The mitral valve has normal leaflets. There is no mitral valve regurgitation. Tricuspid Valve The tricuspid valve leaflets are normal. Pericardium/Pleural The pericardium appears normal. Aorta The aortic root size at the sinus of Valsalva is normal. Left Ventricular Outflow Tract Name Value Normal LVOT 2D LVOT Diameter 2.0 cm LVOT Doppler LVOT Peak Gradient 7 mmHg LVOT Mean Gradient 3 mmHg LVOT VTI 21 cm LVOT VTI/AV VTI Ratio 0.8 LVOT Stroke Volume 66 ml LVOT CO 15.3 l/min LVOT CI 11.1 l/min/m2 Pulmonic Valve Name Value Normal PV Doppler PV Peak Gradient 6 mmHg Mitral Valve Name Value Normal MV Doppler MV Decel [place] 314 cm/s2 MV PHT 69 ms MV Area (PHT) 3.2 cm2 4.0-5.0 MV Diastolic Function
[2022-02-26 08:46] LABS: Glucose Point of Care 234 mg/dl (65-105)
[2022-02-26] MEDS: INSULIN ASPART (*BKC) 100 UNITS/ML SUB-Q ×5 (09:03→17:20)
[2022-02-26] MEDS: VALSARTAN 40 MG TABLET PO ×2 (09:05→17:21)
[2022-02-26] MEDS: MULTIVITAMINS THERAPEUTIC TAB (*BKC) 1 TABLET PO (09:06)
[2022-02-26] MEDS: FAMOTIDINE 20 MG TABLET PO ×2 (09:06→17:21)
[2022-02-26] MEDS: CHOLECALCIFEROL 1,000 UNITS TABLET 2000 UNITS PO (09:06)
[2022-02-26] MEDS: amLODIPine BESYLATE 5 MG TABLET PO (09:06)
[2022-02-26] MEDS: ASPIRIN 81 MG ENTERIC TABLET PO (09:06)
[2022-02-26 11:58] LABS: Glucose Point of Care 427 mg/dl (65-105)
--- NOTE | 2022-02-26 14:03 | WPDNEUROLOGY ---
Neurology EEG Report General Information Date of Study: 02/26/22 TEST EEG DIAGNOSIS cerebellar hemorrhage CONDITION OF RECORDING awake drowsy and sleep EEG NUMBER [id number] CLINICAL HISTORY patient reports she came into hospital couple of days ago with slurred speech, confusion and right upper extremity weakness though she feels better now is still just a little weakness of the right upper extremity EEG DESCRIPTION basic resting occipital frequency consists of low to medium voltage 9 to 11 hertz per 2nd alpha admixed with low-voltage 15 to 18 hertz per 2nd beta intermittently. Low-voltage beta activity seen diffusely admixed waxing and waning posterior alpha rhythm. Bilateral symmetrical sleep activity seen during sleep. Intermittent 3 to 4 hertz per 2nd low-voltage delta activities noted bilaterally. Hyperventilation not done. Photic stimulation not done. Non paroxysmal. Nonfocal. Nonlateralizing. IMPRESSION Abnormal record due to the presence of bihemispheric slow activity but without evidence of any paroxysmal discharge. This abnormality could be consistent with either focal structure lesion or postictal state again clinical correlation recommended
[2022-02-26 16:44] LABS: Glucose Point of Care 162 mg/dl (65-105)
--- NOTE | 2022-02-26 18:50 | PM.DS ---
DS: Admitting Diagnosis Discharge Date 02/26/2022 Admitting Diagnosis Right-sided weakness DS: Discharge Diagnosis Discharge Diagnosis (1) Right arm weakness: Code(s): R29.898 - Other symptoms and signs involving the musculoskeletal system Status: Acute (2) Dysarthria: Code(s): R47.1 - Dysarthria and anarthria Status: Acute (3) Acute ischemic stroke: Code(s): I63.9 - Cerebral infarction, unspecified Status: Acute (4) Type 1 diabetes mellitus: Qualifiers: Diabetes mellitus complication status: with hyperglycemia Qualified Code(s): E10.65 - Type 1 diabetes mellitus with hyperglycemia Code(s): E10.9 - Type 1 diabetes mellitus without complications Status: Acute (5) Cerebellar infarction: Code(s): I63.9 - Cerebral infarction, unspecified Status: Acute DS: Summary Hospital Course Hospital Course: Acute left periventricular matter infarction:? Initially suspected right cerebellar hemorrhage with hyperdensity.? Brain MRI suggest focal dystrophic calcification and or are chronic focal hemorrhagic material related to prior infarct rather than acute hemorrhage.? Started on aspirin 325 mg followed by aspirin 81 mg daily.? Neurology to see.? Echo with no PFO or thrombus. CTA head and neck with no stenosis or large vessel occlusion.? 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 She will continue on aspirin and Crestor. Crestor dose was increased to reach to her goal LDL of less than 70. 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 Need follow-up as an outpatient basis Type 1 diabetes mellitus:? Continue Lantus and lispro with 6 SSI. Follow with hand alterations tailor as previously scheduled Hypertension valsartan to continue blood pressure not at goal.? Added on amlodipine 5 mg daily. Continue to monitor blood pressure with a goal of less than 130 over Hyperlipidemia on rosuvastatin 5 mg will increase to 20 mg.? LDL is 103.? Total cholesterol 259 and triglyceride 165. DVT prophylaxis: SCDs Time Spent with Patient Time attestation: Total time spent providing and/or coordinating discharge services: 40 minutes Exam Narrative: GENERAL: thin built, well-nourished, and in no acute distress. HEAD: Normocephalic, atraumatic. EYES:Left eye? PRRLA and EOMI. Right eye false with small amount of mucoid drainage, no noted erythema ENT: Nares clear, no rhinorrhea or epistaxis.? NECK: Supple.? No adenopathy or masses.? No carotid bruits or JVD CHEST: Clear to auscultation.? No respiratory distress.? No wheezes rales or rhonchi HEART: Regular rate and rhythm.? No murmur heard.? Normal peripheral pulses. ABDOMEN: Soft, nontender, nondistended, normal active bowel sounds. EXTREMITIES: Normal range of motion.? No edema. SKIN: Warm, dry, no rash. NEURO: Right hand hand ii tube bender strength 4+/5 compared to the right, slight right arm drift, normal speech; alert and oriented x3. PSYCH: Normal mood and affect DS: Data Data Completed and Pending Completed studies during hospitalization: Exam Type: ? ? CA echo doppler color flow Study Info Indications ?? ? - STROKE Complete two-dimensional, color flow and Doppler transthoracic echocardiogram is performed. Account #: ? ? [id number] Summary ? 1. Complete two-dimensional, color flow and Doppler transthoracic echocardiogram is performed. ? 2. Normal left ventricular size and systolic function. ? 3. Diastolic noncompliance grade 1. ? 4. No valvular dysfunction. Left Ventricle ? Left ventricular chamber dimension is normal. ? Left ventricular systolic function is hyperdynamic, estimated at >70%. ? Left ventricular septal wall motion is abnormal with septal motion related to bundle branch block. ? The left ventricular kashif
== END 2022-02-26 20:07 | disposition home or self-care (01) | DRG 65 ==
LOC: ANHED 02-23 18:01 → ANHIMU 02-24 07:57 → ANH3MEDSUR 02-24 13:40
PROVIDERS: Preventive Medicine Aerospace Medicine; Admitting Provider Internal Medicine; Emergency Provider Family Medicine; PCP Family Medicine; Visit Provider Internal Medicine
DX: I63.9 Cerebral infarction, unspecified (principal); G81.91 Hemiplegia, unspecified affecting right dominant side; R47.1 Dysarthria and anarthria; I67.1 Cerebral aneurysm, nonruptured; I10 Essential (primary) hypertension; E10.9 Type 1 diabetes mellitus without complications; E03.9 Hypothyroidism, unspecified; E78.5 Hyperlipidemia, unspecified; K21.9 Gastro-esophageal reflux disease without esophagitis; M81.0 Age-related osteoporosis without current pathological fracture; R29.702 NIHSS score 2; Z20.822 Contact with and (suspected) exposure to COVID-19; Z85.840 Personal history of malignant neoplasm of eye; Z87.442 Personal history of urinary calculi; Z90.01 Acquired absence of eye; Z79.4 Long term (current) use of insulin
CPT/HCPCS: 36415; 70450; 70496; 70498; 70553; 80053; 80061; 80307; 81001; 82948; 83036; 83735; 84484; 85025; 85610; 85730; 87086; 87637; 93005; 93306; 95816; 97110; 97161; 97165; 97530; 97535; A9270; A9577; G0378; J1815; Q9967

== ENCOUNTER 2022-03-17 12:39 | Outpatient (RCR) | payer OTHER, SELFPAY ==
--- NOTE | 2022-03-17 13:41 | OTOPEVDC ---
Assessment and note entered by Robert Joseph, OTR/L, CHT Thank you for referring Paulette Ott to [facility].? An evaluation has been completed. No further treatment is needed. Evaluation Information Assessment Status Evaluation Diagnosis CVA Onset 02/22/22 Subjective Information Patient reports she had some residual right arm/ hand weakness after her stroke, but reports this has mostly resolved now. She states her arm is about 98% normal. She states she was able to do 8 push ups the other day. She reports no functional decline in ADLs or household tasks. She is back to driving. She is off work until she is cleared by her neurologist. Her appointment is 05/25. Reported Pain Level Pain Score 0: Self Report Assessment OT Clinical Summary Patient referred to outpatient OT s/p CVA ~3 weeks ago. She reports that her arm weakness has resolved at this time. Testing today shows gross UE strength is symmetrical to the left UE. 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 She was instructed in agronomy specialist strengthening exercises and fine motor coordination exercise to continue to work on these areas. No further skilled OT indicated at this time. Plan of Care OT Services Indicated No
--- NOTE | 2022-03-17 14:32 | PTOPEVAL1 ---
Assessment and note entered by Riccardo Collins, PT Evaluation Information Assessment Status Evaluation Diagnosis CVA Onset 02/22/22 Subjective Information Patient reports she had a small CVA the day after [place] and is just reporting R handed weakness since then. She reports she was cleared by inpatient physical therapy before going home and she is hopeful that she will not need physical therapy and can return to work. Reported Pain Level Pain Score 0: Self Report Pain Score 0: Self Report Assessment PT Clinical Summary Paulette is a 61 year old female coming in to be assessed following a CVA she records 5/5 CHAKA LE strength, normal endurance, a perfect score for Tinetti test, and able to be in single limb stance for more than 10 seconds CHAKA LE. She does not appear to be showing any glaring deficits for continued physical therapy and she reports no issues doing anything at home. Discharged from skilled physical therapy. Plan of Care PT Services Indicated No Treatment Frequency and discharged from skilled physical therapy. Duration These treatments will address the objective and functional deficits as defined above. The patient will be advanced safely and appropriately in order for the patient to progress towards his/her prior level of function. Additional exercises will be introduced and as well as a comprehensive home exercise program upon discharge, if needed, ?to ensure carryover of functional gains achieved in the clinic. This treatment plan has been reviewed and agreement upon by the patient.
== END 2022-03-19 08:54 | disposition home or self-care (01) ==
LOC: ANHOT 12:39
PROVIDERS: PCP Family Medicine; Visit Provider Internal Medicine
DX: I63.9 Cerebral infarction, unspecified (principal)
CPT/HCPCS: 97110; 97161

== ENCOUNTER 2022-04-20 07:34 | Outpatient (CLI) | payer OTHER, SELFPAY ==
[2022-04-20 08:24] LABS: Albumin Level 4.4 g/dL (3.5-5.1); Anion Gap 5 mmol/L (8-16); Blood Urea Nitrogen 15 mg/dL (7-17); Calcium 9.9 mg/dL (8.4-10.2); Carbon Dioxide 28 mmol/L (22-30); Chloride 106 mmol/L (98-107); Estimated Glomerular Filt Rate > 60; Glucose 70 mg/dL (65-110); Phosphorus 3.1 mg/dL (2.5-4.5); Potassium 3.6 mmol/L (3.4-5.0); Sodium 139 mmol/L (137-145)
[2022-04-20 08:40] LABS: Vitamin D 25 Hydroxy 41.7 ng/mL
[2022-04-20 08:53] LABS: Parathyroid Intact 93.7 pg/mL (7.5-53.5)
[2022-04-22 11:49] LABS: Calcium/Creatinine Ratio, Ur 71 mg/g creat (10-320); Urine Calcium, Random 4.2 mg/dL (***)
== END 2022-04-20 07:35 | disposition home or self-care (01) ==
LOC: ANHLAB 07:36
PROVIDERS: PCP Family Medicine; Visit Provider Internal Medicine
DX: E83.52 Hypercalcemia (principal); E10.65 Type 1 diabetes mellitus with hyperglycemia; E21.3 Hyperparathyroidism, unspecified
CPT/HCPCS: 36415; 80069; 82306; 82310; 82570; 83970; 84443

== ENCOUNTER 2022-10-18 10:20 | Outpatient (CLI) | payer OTHER, SELFPAY ==
[2022-10-18 13:15] LABS: Alanine Aminotransferase 32 U/L (6-35); Albumin Level 4.3 g/dL (3.5-5.1); Alkaline Phosphatase 63 U/L (38-126); Anion Gap 7 mmol/L (8-16); Aspartate Amino Transferase 60 U/L (14-36); Bilirubin,Total 0.3 mg/dL (0.2-1.3); Blood Urea Nitrogen 28 mg/dL (7-17); Carbon Dioxide 27 mmol/L (22-30); Chloride 101 mmol/L (98-107); Cholesterol 257 mg/dL (0-200); Estimated Glomerular Filt Rate > 60; Glucose 297 mg/dL (65-110); Potassium 3.9 mmol/L (3.4-5.0); Sodium 135 mmol/L (137-145); Triglycerides 72 mg/dL (<150)
[2022-10-18 13:21] LABS: LDL Cholesterol Direct 86 mg/dL
[2022-10-18 13:24] LABS: HDL Direct 158 mg/dL
[2022-10-18 13:30] LABS: Free T4 Free Thyroxine 1.14 ng/mL (0.78-2.19); Vitamin D 25 Hydroxy 42.9 ng/mL
[2022-10-18 13:41] LABS: Thyroid Stimulating Hormone 0.874 uIU/mL (0.465-4.680); Total Triiodothyronine (T3) 0.92 NG/ML (0.97-1.69)
[2022-10-18 13:47] LABS: Creatinine Urine 51.4 mg/dL
[2022-10-18 13:53] LABS: MALB Creatinine Ratio < 11.7 mg/g (0-30); Microalbumin Urine Random < 6.0 mg/L (0-16.7)
[2022-10-18 14:16] LABS: Folic Acid 6.5 ng/mL (2.76->20)
[2022-10-22 10:44] LABS: Vitamin B1 13 nmol/L (8-30)
[2022-10-23 10:17] LABS: Vitamin B6 6.9 ng/mL (2.1-21.7)
[2022-10-26 04:27] LABS: Vitamin B2 <5.0 nmol/L (6.2-39.0)
[2022-10-26 10:40] LABS: Alpha-Tocopherol 10.3 mg/L (5.7-19.9); Beta-Gamma Tocopherol 2.3 mg/L (<=4.3)
== END 2022-10-18 10:21 | disposition home or self-care (01) ==
LOC: ANHWCLAB 10:23
PROVIDERS: Nurse Practitioner Adult Health; PCP Family Medicine; Visit Provider Family Medicine
DX: R53.83 Other fatigue (principal); R53.1 Weakness; E55.9 Vitamin D deficiency, unspecified; E78.5 Hyperlipidemia, unspecified; E10.9 Type 1 diabetes mellitus without complications; I10 Essential (primary) hypertension
CPT/HCPCS: 36415; 80053; 80061; 82043; 82306; 82607; 82746; 84207; 84252; 84425; 84439; 84443; 84446; 84480

== ENCOUNTER 2023-06-24 10:56 | Outpatient (CLI) | payer MEDICARE, OTHER, SELFPAY ==
[2023-06-24 11:44] LABS: Hematocrit 37.3 % (37.0-47.0); Hemoglobin 12.5 g/dL (12.0-15.0); Mean Corpuscular HGB Conc 33.5 g/dl (32-36); Mean Corpuscular Hemoglobin 33.9 pg (26-34); Mean Corpuscular Volume 101.1 fl (80-100); Mean Platelet Volume 9.4 fl (7.4-10.4); Platelet Count Result 415 k/mm3 (150-375); Red Blood Count 3.69 M/mm3 (4.2-5.4); Red Cell Distribution Width 14.5 % (11.5-14.5); White Blood Count 8.6 K/mm3 (4.5-10.0)
[2023-06-24 12:01] LABS: Alanine Aminotransferase 29 U/L (6-35); Albumin Level 4.6 g/dL (3.5-5.1); Alkaline Phosphatase 60 U/L (38-126); Anion Gap 7 mmol/L (4-12); Aspartate Amino Transferase 35 U/L (14-36); Bilirubin,Total 0.5 mg/dL (0.2-1.3); Blood Urea Nitrogen 25 mg/dL (7-17); Calcium 10.8 mg/dL (8.4-10.2); Carbon Dioxide 27 mmol/L (22-30); Chloride 105 mmol/L (98-107); Cholesterol 232 mg/dL (0-200); Estimated Glomerular Filt Rate > 60; Glucose 113 mg/dL (65-110); Potassium 3.7 mmol/L (3.4-5.0); Sodium 139 mmol/L (137-145); Triglycerides 51 mg/dL (<150)
[2023-06-24 12:04] LABS: Creatinine Urine 90.3 mg/dL
[2023-06-24 12:09] LABS: MALB Creatinine Ratio 25.6 mg/g (0-30); Microalbumin Urine Random 23.1 mg/L (0-16.7)
[2023-06-24 12:09] LABS: Parathyroid Intact 93.8 pg/mL (7.5-53.5)
[2023-06-24 12:12] LABS: LDL Cholesterol Direct 63 mg/dL
[2023-06-24 12:30] LABS: Free T4 Free Thyroxine 1.19 ng/mL (0.78-2.19); HDL Direct 179 mg/dL; Vitamin D 25 Hydroxy 55.8 ng/mL
[2023-06-27 13:12] LABS: Thyroglobulin 21.9 ng/mL; Thyroglobulin Antibodies <1 IU/mL (< or = 1)
== END 2023-06-24 10:57 | disposition home or self-care (01) ==
PROVIDERS: PCP Family Medicine; Visit Provider Internal Medicine
DX: E10.65 Type 1 diabetes mellitus with hyperglycemia (principal); C73 Malignant neoplasm of thyroid gland; M81.0 Age-related osteoporosis without current pathological fracture
CPT/HCPCS: 36415; 80053; 80061; 82043; 82306; 83970; 84432; 84439; 84443; 85027; 86800

== ENCOUNTER 2023-08-05 10:49 | Outpatient (CLI) | payer MEDICARE, OTHER, SELFPAY ==
--- NOTE | ~2023-08-05 | US_ITS ---
US thyroid 08/05/2023 11:41 Indication: Thyroid cancer status post right hemithyroidectomy Procedure: High-resolution ultrasound of the thyroid gland Comparison: Ultrasound dated 05/18/2018 Findings: Right thyroid lobe is surgically absent. Left lobe measures 4.1 x 1.4 x 1.6 cm. In the left lobe there is a mostly cystic mass which is wider than tall measuring 8 mm, smoothly marginated with out calcifications. There is also a 5 mm hyperechoic mass which is contains coarse calcifications carolyne suring 5 mm. No new masses. Impression: 1: Status post right thyroidectomy. 2: No significant change to left thyroid nodules, likely benign. Reviewed, dictated and finalized at location B. Impression: 1: Status post right thyroidectomy. 2: No significant change to left thyroid nodules, likely benign.
== END 2023-08-05 10:50 | disposition home or self-care (01) ==
LOC: ANHIMG 10:51
PROVIDERS: PCP Family Medicine; Visit Provider Internal Medicine
DX: C73 Malignant neoplasm of thyroid gland (principal); E10.65 Type 1 diabetes mellitus with hyperglycemia; M81.0 Age-related osteoporosis without current pathological fracture
CPT/HCPCS: 76536

== ENCOUNTER 2023-09-13 13:03 | Outpatient (CLI) | payer MEDICARE, OTHER, SELFPAY ==
--- NOTE | ~2023-09-13 | DEXA_ITS ---
Bone Density Report Name: FELICITA MOSQUERA Age: 63 Sex: Female Ethnicity: White Date of : 1960 Indication: hyperparathyroidism; parental hip fracture; height loss; cancer; hysterectomy; Referring Provider: EKTA CHARLES Study: Bone densitometry was performed. Exam Date: September 13, 2023 Accession number: [id number] Bone Density: Region BMD T-score Z-score Classification AP Spine(L1-L4) 0.870 -1.6 0.2 Osteopenia Femoral Neck (Left) 0.532 -2.9 -1.3 Osteoporosis Total Hip (Left) 0.638 -2.5 -1.3 Osteoporosis Femoral Neck (Right) 0.510 -3.1 -1.5 Osteoporosis Total Hip (Right) 0.735 -1.7 -0.5 Osteopenia Total Hip Mean 0.686 -2.1 -0.9 Osteopenia World Health Organization criteria for BMD impression classify patients as: Normal (T-score at or above -1.0), Osteopenia (T-score between -1.0 and -2.5), or Osteoporosis (T-score at or below -2.5). 10-year Fracture Risk: FRAX not reported because: Some T-score for Spine Total or Hip Total or Femoral Neck at or below -2.5 Treated for osteoporosis Clinical Information Provided by Patient: Parent has had a hip fracture Is being treated for osteoporosis Has used the following medications: Vitamin D Has the following medical conditions: Cancer, Hyperparathyroidism, Hysterectomy Patient maximum height was 58 Menopause Age: 44 Drinks caffeinated beverages Onset of menses at age 10 Number of children 2 Impression: The patient has osteoporosis, based on the Right Femoral Neck T-score. The patient has risk factors, including: parental hip fracture. Discussion: It is important to ask patients whether they are taking their medications and to encourage continued and appropriate compliance with their osteoporosis therapies to reduce fracture risk. It is also important to review their risk factors and encourage appropriate calcium and vitamin D intakes, exercise, fall prevention and other lifestyle measures. Follow-Up: Consider a repeat BMD and Vertebral Fracture Assessment (VFA) exam in 2 years or sooner if medically necessary, to reassess this patient's status. Reported by: ISAAC on 09/13/2023 1:41:00 PM. Reviewed, dictated and finalized at location ACherie MCCANN
== END 2023-09-13 13:04 | disposition home or self-care (01) ==
LOC: ANHIMG 13:04
PROVIDERS: PCP Family Medicine; Visit Provider Internal Medicine
DX: C73 Malignant neoplasm of thyroid gland (principal); E10.65 Type 1 diabetes mellitus with hyperglycemia; M81.0 Age-related osteoporosis without current pathological fracture; M85.88 Other specified disorders of bone density and structure, other site; M85.851 Other specified disorders of bone density and structure, right thigh
CPT/HCPCS: 77080

== ENCOUNTER 2023-11-21 07:19 | Outpatient (CLI) | payer MEDICARE, OTHER, SELFPAY ==
[2023-11-21 08:12] LABS: Basophils Absolute Auto 0.1 K/mm3 (0.0-0.1); Basophils Percent Auto 1.3 % (0.2-1.2); Eosinophils Absolute Auto 0.4 K/mm3 (0-0.3); Eosinophils Percent Auto 4.3 % (0-4.4); Hematocrit 39.1 % (37.0-47.0); Hemoglobin 12.8 g/dL (12.0-15.0); Immature Granulocyte Absolute 0.01 K/mm3 (0.00-0.031); Immature Granulocyte Percent A 0.1 % (0-0.5); Lymphocytes Absolute Auto 3.33 K/mm3 (0.9-3.2); Lymphocytes Percent Auto 40.7 % (18.3-44.2); Mean Corpuscular HGB Conc 32.7 g/dl (32-36); Mean Corpuscular Hemoglobin 33.2 pg (26-34); Mean Corpuscular Volume 101.6 fl (80-100); Mean Platelet Volume 9.3 fl (7.4-10.4); Monocytes Absolute Auto 0.9 K/mm3 (0.1-0.6); Monocytes Percent Auto 10.6 % (2.6-8.5); Neutrophils Absolute Auto 3.5 K/mm3 (1.3-6.7); Platelet Count Result 363 k/mm3 (150-375); Red Blood Count 3.85 M/mm3 (4.2-5.4); Red Cell Distribution Width 14.6 % (11.5-14.5); White Blood Count 8.2 K/mm3 (4.5-10.0)
[2023-11-21 08:25] LABS: Alanine Aminotransferase 31 U/L (6-35); Albumin Level 4.6 g/dL (3.5-5.1); Alkaline Phosphatase 55 U/L (38-126); Anion Gap 8 mmol/L (4-12); Aspartate Amino Transferase 37 U/L (14-36); Bilirubin,Total 0.5 mg/dL (0.2-1.3); Blood Urea Nitrogen 22 mg/dL (7-17); Calcium 10.5 mg/dL (8.4-10.2); Carbon Dioxide 28 mmol/L (22-30); Chloride 100 mmol/L (98-107); Cholesterol 210 mg/dL (0-200); Estimated Glomerular Filt Rate > 60; Glucose 146 mg/dL (65-110); Potassium 3.8 mmol/L (3.4-5.0); Sodium 136 mmol/L (137-145); Triglycerides 51 mg/dL (<150)
[2023-11-21 08:35] LABS: LDL Cholesterol Direct 50 mg/dL
[2023-11-21 08:44] LABS: HDL Direct 162 mg/dL
[2023-11-21 09:24] LABS: Creatinine Urine 48.1 mg/dL
[2023-11-21 09:28] LABS: MALB Creatinine Ratio 40.5 mg/g (0-30); Microalbumin Urine Random 19.5 mg/L (0-16.7)
== END 2023-11-21 07:20 | disposition home or self-care (01) ==
PROVIDERS: Visit Provider Registered Nurse
DX: E78.5 Hyperlipidemia, unspecified (principal); E11.9 Type 2 diabetes mellitus without complications; I10 Essential (primary) hypertension
CPT/HCPCS: 36415; 80053; 80061; 82043; 85025

== ENCOUNTER 2024-05-07 08:08 | Outpatient (CLI) | payer MEDICARE, OTHER, SELFPAY ==
[2024-05-07 08:55] LABS: Alanine Aminotransferase 29 U/L (6-35); Albumin Level 4.9 g/dL (3.5-5.1); Alkaline Phosphatase 49 U/L (38-126); Anion Gap 11 mmol/L (4-12); Aspartate Amino Transferase 33 U/L (14-36); Bilirubin,Total 0.4 mg/dL (0.2-1.3); Blood Urea Nitrogen 23 mg/dL (7-17); Calcium 10.6 mg/dL (8.4-10.2); Carbon Dioxide 24 mmol/L (22-30); Chloride 105 mmol/L (98-107); Estimated Glomerular Filt Rate > 60; Glucose 186 mg/dL (65-110); Sodium 140 mmol/L (137-145)
[2024-05-07 09:38] LABS: Free T4 Free Thyroxine 1.24 ng/dL (0.78-2.19)
[2024-05-09 17:13] LABS: Ionized Calcium 5.5 mg/dL (4.7-5.5)
== END 2024-05-07 08:09 | disposition home or self-care (01) ==
LOC: ANHLAB 08:12
PROVIDERS: PCP Family Medicine; Visit Provider Internal Medicine
DX: E83.52 Hypercalcemia (principal); M81.8 Other osteoporosis without current pathological fracture; C73 Malignant neoplasm of thyroid gland; E10.65 Type 1 diabetes mellitus with hyperglycemia
CPT/HCPCS: 36415; 80053; 82330; 84439; 84443

== ENCOUNTER 2024-08-11 09:46 | Outpatient (CLI) | payer MEDICARE, OTHER, SELFPAY ==
[2024-08-11 10:16] LABS: Alanine Aminotransferase 31 U/L (6-35); Albumin Level 4.5 g/dL (3.5-5.1); Alkaline Phosphatase 53 U/L (38-126); Anion Gap 9 mmol/L (4-12); Aspartate Amino Transferase 45 U/L (14-36); Bilirubin,Total 0.2 mg/dL (0.2-1.3); Blood Urea Nitrogen 15 mg/dL (7-17); Calcium 11.2 mg/dL (8.4-10.2); Carbon Dioxide 27 mmol/L (22-30); Chloride 105 mmol/L (98-107); Cholesterol 245 mg/dL (0-200); Estimated Glomerular Filt Rate > 60; Glucose 66 mg/dL (65-110); Potassium 3.6 mmol/L (3.4-5.0); Sodium 141 mmol/L (137-145); Total Protein 7.8 g/dL (6.3-8.2); Triglycerides 58 mg/dL (<150)
[2024-08-11 10:27] LABS: LDL Cholesterol Direct 61 mg/dL; Parathyroid Intact 64.1 pg/mL (14.5-75.2)
[2024-08-11 10:31] LABS: Vitamin D 25 Hydroxy 44.3 ng/mL
[2024-08-11 10:33] LABS: Creatinine Urine 16.4 mg/dL
[2024-08-11 10:49] LABS: MALB Creatinine Ratio < 36.6 mg/g (0-30); Microalbumin Urine Random < 6.0 mg/L (0-16.7)
[2024-08-11 12:16] LABS: HDL Direct 178 mg/dL
[2024-08-13 11:32] LABS: Ionized Calcium 5.7 mg/dL (4.7-5.5)
== END 2024-08-11 09:47 | disposition home or self-care (01) ==
LOC: ANHLAB 09:47
PROVIDERS: PCP Family Medicine; Visit Provider Internal Medicine
DX: E10.65 Type 1 diabetes mellitus with hyperglycemia (principal); I10 Essential (primary) hypertension; E78.5 Hyperlipidemia, unspecified; M81.8 Other osteoporosis without current pathological fracture; E21.3 Hyperparathyroidism, unspecified; Z71.3 Dietary counseling and surveillance; Z98.890 Other specified postprocedural states
CPT/HCPCS: 36415; 80053; 80061; 82043; 82306; 82330; 83970

== ENCOUNTER 2024-11-23 12:04 | Outpatient (CLI) | payer MEDICARE, OTHER, SELFPAY ==
--- NOTE | ~2024-11-23 | XR_ITS ---
EXAMINATION: XR shoulder RT min 2V, 11/23/2024 12:28 CDT HISTORY: unspecified inury COMPARISON: No comparisons available. Findings: No acute fracture or malalignment. No significant degenerative changes. Soft tissues unremarkable. Impression: No acute fracture or malalignment. Reviewed, dictated and finalized at location P. Impression: No acute fracture or malalignment.
== END 2024-11-23 12:05 | disposition home or self-care (01) ==
PROVIDERS: PCP Family Medicine
DX: T14.90XA Injury, unspecified, initial encounter (principal)
CPT/HCPCS: 73030

== ENCOUNTER 2024-12-21 18:01 | Emergency (ER) | payer MEDICARE, OTHER, SELFPAY ==
--- NOTE | ~2024-12-21 | CT_ITS ---
CT facial & cervical spine wo HISTORY: fall, [place], nasal injury COMPARISON: None TECHNIQUE: Axial images of the cervical spine and facial bones were obtained. Multiplanar reconstruction in the coronal, sagittal and axial reformats to evaluate for cervical fracture. FINDINGS: The images demonstrate no acute fracture or paravertebral soft tissue swelling. Degenerative changes with disc space narrowing and uncovertebral hypertrophy are noted. There are facet joint arthropathy. The visualized aspect of the upper lungs are clear. No facial bone fracture is identified. The sinuses are clear. The nasal septum is midline. No soft tissue swelling or foreign body is noted. IMPRESSION: Moderate multilevel degenerative changes. No acute fracture or subluxation. All CT scans at this facility are performed using low dose modulation techniques as appropriate to perform exam including the following: automated exposure control; adjustment of the mA and/or kV according to patient size (this includes techniques or standardized protocols for targeted exams where does is matched to indication/reason for exam; i.e. extremities or head); use of iterative reconstruction technique). Reviewed, dictated and finalized at location S. IMPRESSION: Moderate multilevel degenerative changes. No acute fracture or subluxation. All CT scans at this facility are performed using low dose modulation techniqu es as appropriate to perform exam including the following: automated exposure c ontrol; adjustment of the mA and/or kV according to patient size (this includes techniques or standardized protocols for targeted exams where does is matched to indication/reason for exam; i.e. extremities or head); use of iterative vanesa nstruction technique).
--- NOTE | ~2024-12-21 | CT_ITS ---
CT brain wo con HISTORY:fall, hi COMPARISON: None. TECHNIQUE: Axial images were obtained of the head without intravenous contrast. FINDINGS: No acute intracranial hemorrhage, mass effect or midline shift. No extra-axial fluid collections. Chronic white matter microangiopathic changes are noted in the periventricular and subcortical white matter.Visualized paranasal sinuses and mastoid air cells are clear. IMPRESSION: No acute intracranial hemorrhage or extra axial fluid collections. Mild chronic white matter microangiopathic changes. All CT scans at this facility are performed using low dose modulation techniques as appropriate to perform exam including the following: automated exposure control; use of iterative reconstruction technique; adjustment of the mA and/or kV according to patient size (this includes techniques or standardized protocols for targeted exams where dose is matched to indication/reason for exam). Reviewed, dictated and finalized at location [facility]. IMPRESSION: No acute intracranial hemorrhage or extra axial fluid collections. Mild chronic white matter microangiopathic changes. All CT scans at this facility are performed using low dose modulation techniqu es as appropriate to perform exam including the following: automated exposure c ontrol; use of iterative reconstruction technique; adjustment of the mA and/or kV according to patient size (this includes techniques or standardized protocol s for targeted exams where dose is matched to indication/reason for exam).
[2024-12-21 18:04] VITALS: BP 155/84; PULSE 112; RESP 20; TEMP 37.1; O2SAT 99
[2024-12-21 18:24] VITALS: BP 159/84; PULSE 95; RESP 20; O2SAT 98
[2024-12-21 19:01] VITALS: BP 116/92; PULSE 88; RESP 14; O2SAT 98
--- NOTE | 2024-12-21 19:15 | PC.NURSE ---
This RN received report from Andreina MAGALLANES.
--- NOTE | 2024-12-21 19:19 | PC.NURSE ---
650 mg PO Tylenol LIA Haynes
[2024-12-21] MEDS: ACETAMINOPHEN 325 MG TABLET 650 MG PO (19:24)
--- NOTE | 2024-12-21 19:26 | ED.FALL ---
HPI - Fall General Chief Complaint: Fall Stated Complaint: Fall, epistaxis Time Seen by Provider: 12/21/24 18:35 History of Present Illness HPI Narrative: This is a 64-year-old female with history of hypertension, type 1 diabetes, CVA who presents to the ED for fall. Patient states that she was walking her dogs when they began to pull and pulled her down so that she lost her balance and fell forward hitting her face on the sidewalk with her dentures in. She sustained a laceration to her upper lip. She denies loss consciousness. She is not on any blood thinners. Unsure of her last tetanus shot. Related Data Home Medications ?Medication ?Instructions ?Recorded ?Confirmed ?Last Taken ?Type lancets 33 gauge (BD Ultra Fine #100 ea 02/23/19 11/01/24 Unknown History Lancets) fluticasone propionate 50 1 spray intranasal DAILY PRN 06/09/21 10/26/23 Unknown History mcg/actuation nasal Allergy Symptoms spray,suspension (Flonase Allergy Relief) omeprazole 20 mg capsule,delayed 20 mg PO DAILY 11/01/24 11/01/24 Unknown History release calcium carbonate (Oyster Shell 500 mg PO BID 12/18/24 Unknown History Calcium) Allergies Allergy/AdvReac Type Severity Reaction Status Date / Time No Known Allergies Allergy Verified 12/21/24 18:23 [facility], [facility] Past Medical History Medical History Extrusion of teeth Body mass index [BMI] 24.0-24.9, adult (09/12/18) Hypercalcemia Type 1 diabetes mellitus with hyperglycemia Hyperparathyroidism Dietary counseling and surveillance (01/07/16) Cerebellar infarction Acute ischemic stroke 02/22/22 Cancer of retina of right eye Type 2 diabetes mellitus with hyperglycemia Essential (primary) hypertension Hypothyroidism Chronic GERD Osteoporosis Type 1 diabetes mellitus Kidney stones Surgical History Surgical History History of eye surgery no right eye History of bladder surgery History of hysterectomy H/O thyroidectomy Family History Family History Other Family history of malignant neoplasm of urinary bladder Social History Social History Smoking status: Former smoker Second hand tobacco smoke exposure: No Additional smoking assessment comments: smoked off and on for years; unsure of when she quit; Alcohol intake: current Drinks per week: 2 Alcohol use details: glass of wine with dinner Substance use: never Substance use type: does not use Lack of Transportation: No Lack of Food: Never True Current Housing: I Have Housing Concerned About Future Housing: No Difficulty Paying Gas/Electric Bills: No Difficulty Paying for Meds: No Currently Unemployed: No Education: Associate Degree Difficulty w/ Childcare or Family Care: No Living arrangements: alone Occupation/Education: occupation 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[employer] Gender identity (if verbalized by the patient): Female Spiritual care concerns: No Course Vital Signs Vital signs: Vital Signs Temperature 98.8 F 12/21/24 18:04 Pulse Rate 112 H 12/21/24 18:04 Respiratory Rate 20 12/21/24 18:04 Blood Pressure 155/84 H 12/21/24 18:04 Pulse Oximetry 99 12/21/24 18:04 Oxygen Delivery Room Air 12/21/24 18:04 Temperature 98.8 F 12/21/24 18:04 Pulse Rate 99 12/21/24 21:09 Respiratory Rate 12 12/21/24 21:09 Blood Pressure 136/74 12/21/24 21:09 Pulse Oximetry 96 12/21/24 21:09 Oxygen Delivery Room Air 12/21/24 18:24 Procedures Laceration Laceration 1: Date: 12/21/24 Time: 20:15 Site: lip Size (cm): 1 Description: stellate Depth: [id number] Local Anesthetic: lidocaine 2% Amount of anesthesia used (mL): 3 Pre-repair: wound explored and irrigated ====== Skin Level ====== Skin layer closed with: nylon Size (cm): 6-0 Number of sutures: 3 ====== Subcutaneous Layer ====== Subcutaneous layer closed with: chromic gut Size: 5-0 Number of sutures: 2 ====== Muscle Layer ====== ====== Tendon Layer ====== MDM - Fall MDM Narrative Medical decision making narrative: 64-year-old female presenting for laceration. On initial evaluation, patient was in no acute distress and afebrile, hemodynamically stable. She did have a small laceration to her upper lip that was not involving the vermilion border. It was through and through. CT brain and facial bones showed no acute abnormalities. Laceration was repaired as above, patient tolerated procedure well. She is advised follow-up with PCP in the next week for re-evaluation. Patient was agreeable to this plan. Given strict return precautions. Differential Diagnosis Differential diagnosis: Likely syncope and other (Laceration, fracture, intracranial hemorrhage) Medical Records Attestation: I reviewed the patient's medical records. Imaging Data Attestation: I personally reviewed and interpreted this imaging study as follows: Radiologist's impression: Impressions Head CT 12/21/24 19:00 IMPRESSION: No acute intracranial hemorrhage or extra axial fluid collections. Mild chronic white matter microangiopathic changes. All CT scans at this facility are performed using low dose modulation techniques as appropriate to perform exam including the following: automated exposure control; use of iterative reconstruction technique; adjustment of the mA and/or kV according to patient size (this includes techniques or standardized protocols for targeted exams where dose is matched to indication/reason for exam). Head/Cervical Spine/Facial Bones CT 12/21/24 19:51 IMPRESSION: Moderate multilevel degenerative changes. No acute fracture or subluxation. All CT scans at this facility are performed using low dose modulation techniques as appropriate to perform exam including the following: automated exposure control; adjustment of the mA and/or kV according to patient size (this includes techniques or standardized protocols for targeted exams where does is matched to indication/reason for exam; i.e. extremities or head); use of iterative reconstruction technique). Discharge Plan Discharge Clinical Impression: Fall, Laceration of face Patient Disposition: Home Condition: Stable Instructions: Antibiotic Form, Laceration (ED) Additional Instructions: Follow-up with your PCP in the next 5-7 days for re-evaluation and suture removal. Return to the ED for any new or worsening symptoms. You may swish and spit salt water for discomfort to the inside of your lip. Patient Language: Mosotho Prescriptions: No Action omeprazole 20 mg capsule,delayed release(DR/EC) 20 mg PO DAILY (DME) lancets Misc See Rx Instructions .ROUTE .MEDSUPPLY Qty: 400 1RF Rx Instructions: use four times daily Gvoke HypoPen 2-Pack 1 mg/0.2 mL auto-injector 1 mg subcut ONCE Qty: 0.4 0RF Rx Instructions: as a single dose; may repeat once after 15 minutes if no response (DME) ReliOn Prime Test Strips Strip See Rx Instructions .ROUTE .MEDSUPPLY Qty: 400 1RF Rx Instructions: use four times daily (DME) pen needle, diabetic 32 gauge x 5/32 needle See Rx Instructions .Route Qty: 400 0RF Rx Instructions: Use with insulin 4 times daily Baqsimi 3 mg/actuation spray,non-aerosol 3 mg intranasal ONCE Qty: 2 0RF Rx Instructions: as a single dose; may repeat once in 15 minutes if no response (DME) lancets [BD Ultra Fine Lancets] 33 gauge misc See Rx Instructions .ROUTE .MEDSUPPLY Qty: 100 Rx Instructions: use to ck bs 3 times daily fluticasone propionate [Flonase Allergy Relief] 50 mcg/actuation spray,suspension 1 spray intranasal DAILY PRN (Reason: Allergy Symptoms) Rx Instructions: administer into each nostril calcium carbonate [Oyster Shell Calcium] 500 mg calcium (1,250 mg) tablet 500 mg PO BID amlodipine [Norvasc] 5 mg Tablet 5 mg PO QAM Qty: 30 0RF Patient Comments: .. aspirin 81 mg Tablet,Delayed Release (Dr/Ec) 81 mg PO QAM Qty: 30 0RF valsartan 40 mg tablet See Rx Instructions .ROUTE .COMPLEX Qty: 180 2RF Dose Instruction: TAKE 1 TABLET BY MOUTH TWICE DAILY Rx Instructions: TAKE 1 TABLET BY MOUTH TWICE DAILY rosuvastatin [Crestor] 20 mg tablet 20 mg PO DAILY Qty: 90 3RF Lantus U-100 Insulin 100 unit/mL solution 11 unit SUB-Q DAILY Qty: 10 1RF insulin aspart U-100 [Novolog U-100 Insulin aspart] 100 unit/mL solution 3 unit subcut .before meals MDD 14 Qty: 10 0RF Rx Instructions: only vials please no pens Follow-up/Referrals: Gerber Bill MD [Primary Care Provider, Family Practice]
[2024-12-21] MEDS: TETANUS,DIPHTHERIA,AC PERTUSSIS ADULT (0.5 ML) BOOSTRIX IM (19:37)
[2024-12-21 19:45] VITALS: BP 146/86; O2SAT 97
[2024-12-21 21:09] VITALS: BP 136/74; PULSE 99; RESP 12; O2SAT 96
== END 2024-12-21 20:42 | disposition home or self-care (01) ==
PROVIDERS: Emergency Provider Student in an Organized Health Care Education/Training Program; PCP Family Medicine
DX: S01.511A Laceration without foreign body of lip, initial encounter (principal); Z23 Encounter for immunization; I10 Essential (primary) hypertension; E10.9 Type 1 diabetes mellitus without complications; E89.0 Postprocedural hypothyroidism; E21.3 Hyperparathyroidism, unspecified; K21.9 Gastro-esophageal reflux disease without esophagitis; M81.0 Age-related osteoporosis without current pathological fracture; Z86.73 Personal history of transient ischemic attack (TIA), and cerebral infarction without residual deficits; Z85.840 Personal history of malignant neoplasm of eye; Z87.891 Personal history of nicotine dependence; Z87.442 Personal history of urinary calculi; Z90.710 Acquired absence of both cervix and uterus; Y93.K1 Activity, walking an animal; W18.39XA Other fall on same level, initial encounter; Z79.82 Long term (current) use of aspirin; Z79.899 Other long term (current) drug therapy; Z79.4 Long term (current) use of insulin
CPT/HCPCS: 12051; 70450; 70486; 72125; 90471; 90715; 99284; A9270

== ENCOUNTER 2024-12-31 08:04 | Outpatient (CLI) | payer MEDICARE, OTHER, SELFPAY ==
--- OUTSIDE RECORDS SUMMARY | 2024-12-31 08:13 | XMS_ITS | Clinical Summary ---
Author Organization [facility] Address [address] [place] [address] Care Team Providers Care Dietary Services Manager Name Role Phone Gerber Bill MD Primary Care Provider Allergies No known active allergies Medications amLODIPine (NORVASC) 5 mg tablet Take 1 tablet (5 mg total) by mouth every morning Active rosuvastatin (CRESTOR) 20 mg tablet Take 1 tablet (20 mg total) by mouth every morning Active valsartan (DIOVAN) 40 mg tablet Take 1 tablet (40 mg total) by mouth 2 (two) times a day Active omeprazole (PriLOSEC) 20 mg capsule Take 1 capsule (20 mg total) by mouth every morning Active erythromycin (ILOTYCIN) ophthalmic ointment Apply 1 Application to right eye nightly as needed Active insulin glargine 100 unit/mL vial for injection Inject 11 Units under the skin every morning 10am Active insulin aspart (NovoLOG) 100 unit/mL vial for injection Inject 1 Units under the skin 3 (three) times a day before meals 1 unit per 10 g of carbs Active coenzyme Q10 100 mg capsule Take 1 capsule (100 mg total) by mouth every morning Active naproxen (ALEVE) 220 mg tablet Take 1 tablet (220 mg total) by mouth every 12 (twelve) hours as needed for pain Active acetaminophen (TYLENOL) 500 mg tablet Take 2 tablets (1,000 mg total) by mouth every 6 (six) hours as needed for pain Active ibuprofen (ADVIL,MOTRIN) 400 mg tablet Take 1 tablet (400 mg total) by mouth every 8 (eight) hours as needed for pain Active menthol gel Apply 1 Application topically daily as needed Icy hot Active fluticasone propionate (FLONASE) 50 mcg/actuation nasal spray Administer 1 spray into each nostril daily as needed for rhinitis Active calcium carbonate (OS-RANDA) 1,250 mg (500 mg elemental) tabletIndicatio ns:hypocalcemia Take 1 tablet (1,250 mg total) by mouth every 8 (eight) hours 90 tablet 11 5 11/18/19 26 Active oxyCODONE (ROXICODONE) 5 mg immediate release tabletIndicatio ns:Pain Take 1 tablet (5 mg total) by mouth every 4 (four) hours as needed for pain 5 tablet 5 Active aspirin 81 mg enteric coated tabletIndicatio ns:heart health Take 1 tablet (81 mg total) by mouth every morning Resume taking as prescribed on Tuesday11/19/2024 5 Active Active Problems Problem Noted Date Diagnosed Date Hyperparathyroidism 11/07/2024 Anophthalmos 10/11/2014 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 Overview (06/10/2017): Description: Right eye Encounters Date Type Department Care Team Description 12/18/2024 Results Follow-Up [facility] Surgeon [address] [place] [address] Mike Bowman MD Renal function panel, PTH, eGFR 12/17/2024 4:00 PM CDT Office Visit [facility] Medicine Surgery [address] [place] [phone] Mike Bowman MD Research study patient (Primary Dx); Primary hyperparathyroidism 12/17/2024 3:15 PM CDT Lab [facility] ([facility] [address] [place] [phone] 12/17/2024 3:00 PM CDT Lab [facility] ([facility]) [address] [place] [phone] Research study patient; Primary hyperparathyroidism 11/22/2024 Results Follow-Up [facility] Medicine Oncology [address] [place] [phone] Mike Bowman MD Surgical pathology 11/16/2024 10:07 AM CDT Anesthesia Event [facility] ([facility]) [address] [place] [phone] [place] MD Powers, Julia Jeanette, NP 11/16/2024 10:05 AM CDT - 11/16/2024 12:25 PM CDT Surgery [facility] ([facility]) [address] [place] [phone] Mike Bowman MD Selective exploration of the left neck, removal of the left upper parathyroid gland 11/16/2024 7:44 AM CDT - 11/17/2024 5:00 PM CDT Hospital Encounter [address] [phone] Mike Bowman MD Hyperparathyroidism Discharge Disposition: Discharge to home or self care 11/15/2024 Telephone [facility] [address] [place] [address] [address] [place] [address] Maria C Mesa, [facility] 11/15/2024 Telephone [facility] [address] [place] [address] [address] [place] [phone] Maria C Mesa, [facility] 11/12/2024 [facility] [address] [place] [address] [address] [place] [phone] Mike Bowman MD Surgery Related 10/25/2024 3:15 PM CDT Office Visit [facility] [address] [place] [address] Floor [address] [place] [address] Mike Bowman MD Primary hyperparathyroidism (Primary Dx) 10/25/2024 12:58 PM CDT - 10/25/2024 11:59 PM CDT Hospital Encounter [facility] ([facility]) [address] [place] [phone] Primary hyperparathyroidism Discharge Disposition: Discharge to home or self care 10/24/2024 12:20 PM CDT - 10/24/2024 11:59 PM CDT Hospital Encounter [facility] ([facility]) [address] [place] [address] Primary hyperparathyroidism Discharge Disposition: Discharge to home or self care 10/03/2024 Orders Only [facility] Medicine Surgery [address] [facility] Floor [address] [place] [address] Mike Bowman MD Primary hyperparathyroidism (Primary Dx) from Last 3 Months Surgical History Surgery Date Site/Laterality Comments IA TOTAL THYROID LOBEC UNI W/CONTRALAT STOT LOBEC 02/28/1977 - 02/27/1978 Thyroid Surgery Tang-Thyroidectomy Right Lobe - (Added by TW Conv) HYSTERECTOMY 02/28/2003 - 02/28/2004 HERNIA REPAIR 02/28/2005 - 02/27/2006 EYE SURGERY 02/28/2015 - 02/28/2016 siteman- R prosthesis, melanoma of the eye TONSILLECTOMY/ADENOIDECTOMY 02/28/1963 - 02/28/1964 BREAST SURGERY 02/28/1993 - 02/27/1994 Bilateral augmentation CATARACT EXTRACTION 02/28/2015 - 02/28/2016 PARATHYROIDECTOMY 11/16/2024 Neck/Left Procedure: Selective exploration of the left neck, removal of the left upper parathyroid gland; Surgeon: Mike Bowman MD; Location: [facility] OR POD 4; Service: Oncology; Laterality: Left; Medical devices from this surgery are in the Medical Devices section. Medical History Medical History Date Comments Diabetes mellitus Hypertension Stroke (HCC) Generalized headaches Thyroid disease Osteoporosis Arthritis History of stroke 2022 right hand few fingers numbness PONV (postoperative nausea and vomiting) Family History Medical History Relation Name Comments Bladder Cancer Father Family histor y of malignant neoplasm of urinary bladder - (Added by TW Conv) Bladder Cancer Paternal Grandfather Skin cancer Sister Relation Name Status Comments Father Paternal Grandfather Sister Social History Tobacco Use Types Packs/Day Years Used Date Smoking Tobacco: Former Cigarettes Q uit: 2022 Smokeless Tobacco: Never Tobacco Cessation:Counseling Given: Not Answered Alcohol Use Standard Drinks/Week Comments Yes 1 (1 standard drink = 0.6 oz pur e alcohol) AUDIT-C Answer Date Recorded Q1: How often do you have a drink containing alc ohol? 2-4 times a month 11/16/2024 Q2: How many drinks containi ng alcohol do you have on a typical day when you are drinking? 1 or 2 11/16/2024 Q3: How often do you have si x or more drinks on one occasion? Never 11/16/2024 Personal Safety Answer Date Recorded Have you ever been in or are you currently in a harmful physical or emotional relationship or is someone making you feel afraid or unsafe? 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 Gender Identity Not on file Sexual Orientation Not on file Last Filed Vital Signs Vital Sign Reading Time Taken Comments Blood Pressure 131/80 12/17/2024 3:01 PM CDT Pulse 86 12/17/2024 3:01 PM CDT Temperature 36.1 C (97 F) 12/17/2024 3:01 PM CDT Respiratory Rate 18 12/17/2024 3:01 PM CDT Oxygen Saturation 98% 12/17/2024 3:01 PM CDT Inhaled Oxygen Concentration - - Weight 47.3 kg (104 lb 3.2 oz) 12/17/2024 3:01 P M CDT Height 141 cm (4' 7.5) 11/16/2024 8:30 AM CDT Body Mass Index 23.78 11/16/2024 8:30 AM CDT Plan of Treatment Health Maintenance Due Date Last Done Comments Albumin Creatinine Ratio, Urine 1958 Breast Cancer Screening-Mammogram 1958 Colon Cancer Screening-Colonoscopy 1958 Depression Screening 1958 Foot Exam 1958 Hepatitis C Screening 1958 Osteoporosis Screening-Bone Density Scan 1958 TSH Level 1958 Dilated Eye Exam 1968 Lipid Panel 1968 DTaP/Tdap/Td Vaccine (1 - Tdap) 1969 Hepatitis B Screening 1976 Pneumococcal vaccine 65+ (1 of 2 - PCV) 1977 Zoster Vaccine (1 of 2) 2008 Well Visit 65+ 06/18/2023 Covid-19 Vaccine (3 - 2024-2 6 season) 2024 03/07/2020, 02/15/2020 Influenza Vaccine (#1) 2024 Hemoglobin A1C 05/16/2025 11/16/2024 Fall Risk Assessment 11/17/2025 11/17/2024 eGFR 12/17/2025 12/17/2024, 09/, 11/16/2024, Additional history exists Medical Devices Explanted Type Area Territory Sales Manager Medical Device Identifier Shelf Expiration Date Model / Serial / Lot Parathyroid Tissue Explanted:Qty: 1 on 11/16/2024 by Mike Bowman MD at [facility] N/A: Neck Other 11/30/2024 N/A / / Procedures Procedure Name Priority Date/Time Associated Diagnosis Comments EGFR Routine 12/17/2024 1:17 PM CDT Primary hyperparathyroidism PTH Routine 12/17/2024 1:17 PM CDT Primary hyperparathyroidism RENAL FUNCTION PANEL Routine 12/17/2024 1:17 PM CDT Primary hyperparathyroidism POCT GLUCOSE DEVICE Routine 11/17/2024 1:00 PM CDT PTH Routine 11/17/2024 11:33 AM CDT POCT GLUCOSE DEVICE Routine 11/17/2024 10:06 AM CDT POCT GLUCOSE DEVICE Routine 11/17/2024 7:27 AM CDT EGFR Timed 11/17/2024 4:28 AM CDT PTH Timed 11/17/2024 4:28 AM CDT BASIC METABOLIC PANEL Timed 11/17/2024 4:28 AM CDT EGFR Routine 11/16/2024 11:26 PM CDT BASIC METABOLIC PANEL Routine 11/16/2024 11:26 PM CDT EGFR Timed 11/16/2024 9:13 PM CDT CRITICAL RESULT CALLBACK CHEMISTRY Timed 11/16/2024 9:13 PM CDT HEMOGLOBIN A1C Routine 11/16/2024 9:13 PM CDT PTH Timed 11/16/2024 9:13 PM CDT BASIC METABOLIC PANEL Timed 11/16/2024 9:13 PM CDT POCT GLUCOSE DEVICE Routine 11/16/2024 8:22 PM CDT EGFR Timed 11/16/2024 5:50 PM CDT BASIC METABOLIC PANEL Timed 11/16/2024 5:50 PM CDT PTH Timed 11/16/2024 5:50 PM CDT POCT GLUCOSE DEVICE Routine 11/16/2024 5:16 PM CDT EGFR Routine 11/16/2024 12:46 PM CDT COMPREHENSIVE METABOLIC PANEL Routine 11/16/2024 12:46 PM CDT PTH Routine 11/16/2024 12:46 PM CDT POCT GLUCOSE DEVICE Routine 11/16/2024 12:25 PM CDT IA AN PROCEDURE PLACEHOLDER Routine 11/16/2024 11:43 AM CDT POCT GLUCOSE DEVICE Routine 11/16/2024 11:27 AM CDT PTH Routine 11/16/2024 11:23 AM CDT PTH Routine 11/16/2024 11:17 AM CDT PTH Routine 11/16/2024 11:11 AM CDT SURGICAL PATHOLOGY Routine 11/16/2024 11:10 AM CDT Hyperparathyroidism POCT GLUCOSE DEVICE Routine 11/16/2024 10:48 AM CDT IA AN PROCEDURE PLACEHOLDER Routine 11/16/2024 10:41 AM CDT IA AN ELECTIVE ENDOTRACHEAL AIRWAY Routine 11/16/2024 10:41 AM CDT PARATHYROIDECTOMY. 11/16/2024 10:12 AM CDT Hyperparathyroidism Case Notes 11/07/24 Message sent to scheduling team at providers office for clarification of Cut to Close. SL Special Needs Intra-op PTH monitoring, NIM POCT GLUCOSE DEVICE Routine 11/16/2024 9:17 AM CDT US SOFT TISSUE NECK Schedule Routine, Read Routine (OP Routine) 10/25/2024 2:56 PM CDT Primary hyperparathyroidism CT 4D PARATHYROID Schedule Routine, Read Routine (OP Routine) 10/24/2024 1:29 PM CDT Primary hyperparathyroidism from Last 3 Months Results * eGFR (12/17/2024 1:17 PM CDT) eGFR >90 >=60 mL/min/1. 73 m2 Comment: Interpretive Data Reference Interval Normal >/= 90 mL/min/1.73m2 Mildly decreased* 60 - 89 mL/min/1.73m2 Mildly to moderately decreased 45 - 59 mL/min/1.73m2 Moderately to severely decreased 30 - 44 mL/min/1.73m2 Severely decreased 15 - 29 mL/min/1.73m2 Kidney Failure < 15 mL/min/1.73m2 *Relative to young adult level Estimated glomerular filtration rate is determined by the 2020 CKD-EPI equation recommended by the National Kidney Foundation (A Unifying Approach to GFR Estimation: Recommendations of the NKF-ASK Task Force on Reassessing the Inclusion of Race in Diagnosing Kidney Disease, JASN 2020). The CKD-EPI equation should not be used for patients with unstable renal function and has not been validated in children and those over 70. Current interpretive data was last reviewed 2020. Blood 12/17/2024 1:17 PM CDT 12/17/2024 1:59 PM CDT us Susie Dinh MD LAB BLOOD ORDERABLES Final Resul t Performing Organization Address City/[facility] Co de Phone Number [facility] [place] [address] * PTH (12/17/2024 1:17 PM CDT) Pathologist [facility] PTH 27 18 - 59 pg/mL Blood 12/17/2024 1:17 PM CDT 12/17/2024 1:58 PM CDT us Susie Dinh MD LAB BLOOD ORDERABLES Final Resul t Performing Organization Address [facility] de Phone Number [facility] [place] [address] * Renal function panel (12/17/2024 1:17 PM CDT) [facility] Sodium 142 135 - 145 mmol/L Potassium, pl 3.9 3.3 - 4.9 mmol/L [facility] Chloride 108 97 - 110 mmol/L [facility] CO2 27 22 - 32 mmol/L [facility] Anion gap 7 2 - 15 mmol/L [facility] BUN 21 6 - 25 mg/dL [facility] Creatinine 0.65 0.60 - 1.10 mg/dL [facility] Glucose 94 70 - 199 mg/dL [facility] Comment: Interpretive Data Fasting glucose >/= 126 mg/dl is diagnostic for diabetes. Fasting is defined as no caloric intake for at least 8 hours. Fasting glucose between 100 mg/dl to 125 mg/dl is diagnostic of prediabetes. In a patient with classic symptoms of hyperglycemia or hyperglycemic crisis, a random glucose >/= 200 mg/dl is diagnostic for diabetes. In the absence of unequivocal hyperglycemia, results should be confirmed by repeat testing. The classification and Diagnosis of Diabetes Diabetes Care 2021; 46: S19-S40. Current interpretive data was last revised 2022. Calcium 9.5 8.5 - 10.3 mg/dL [facility] Phosphorus, pl 2.8 2.3 - 4.5 mg/dL [facility] Albumin 4.3 3.5 - 5.0 g/dL [facility] Blood 12/17/2024 1:17 PM CDT 12/17/2024 1:59 PM CDT Susie Dinh MD LAB BLOOD ORDERABLES Final Resul t Performing Organization Address City/[facility] Co de Phone Number [facility] [place] [employer] [place] [place] [address] * (ABNORMAL) POCT glucose (11/17/2024 1:00 PM CDT) Glucose, POC 232(H) 70 - 199 mg/dL Blood 11/17/2024 1:00 PM CDT 11/17/2024 1:00 PM CDT Mike Bowman MD LAB POCT ORDERABLES - D ITA Final Result Performing Organization Address [facility] de Phone Number [facility] [employer] [place] [address] * (ABNORMAL) PTH (11/17/2024 11:33 AM CDT) PTH 13(L) 15 - 65 pg/mL Blood 11/17/2024 11:3 3 AM CDT 11/17/2024 12:16 PM CDT Mike Bowman MD LAB BLOOD ORDERABLES Fi nal Result Performing Organization Address [facility] Co de Phone Number [facility] [employer] [place] [address] * (ABNORMAL) POCT glucose (11/17/2024 10:06 AM CDT) Glucose, POC 271(H) 70 - 199 mg/dL Blood 11/17/2024 10:0 6 AM CDT 11/17/2024 10:06 AM CDT Mike Bowman MD LAB POCT ORDERABLES - D EVICE Final Result Performing Organization Address City/State/[facility] Co de Phone Number [facility] [place] [address] * (ABNORMAL) POCT glucose (11/17/2024 7:27 AM CDT) Glucose, POC 257(H) 70 - 199 mg/dL Blood 11/17/2024 7:27 AM CDT 11/17/2024 7:27 AM CDT Mike Bowman MD LAB POCT ORDERABLES - D EVICE Final Result Performing Organization Address [facility] de Phone Number [facility] [place] [employer] [place] [address] * eGFR (11/17/2024 4:28 AM CDT) eGFR 88 >=60 mL/min/1. 73 m2 Comment: Interpretive Data Reference Interval Normal >/= 90 mL/min/1.73m2 Mildly decreased* 60 - 89 mL/min/1.73m2 Mildly to moderately decreased 45 - 59 mL/min/1.73m2 Moderately to severely decreased 30 - 44 mL/min/1.73m2 Severely decreased 15 - 29 mL/min/1.73m2 Kidney Failure < 15 mL/min/1.73m2 *Relative to young adult level Estimated glomerular filtration rate is determined by the 2020 CKD-EPI equation recommended by the National Kidney Foundation (A Unifying Approach to GFR Estimation: Recommendations of the NKF-ASK Task Force on Reassessing the Inclusion of Race in Diagnosing Kidney Disease, JASN 2020). The CKD-EPI equation should not be used for patients with unstable renal function and has not been validated in children and those over 70. Current interpretive data was last reviewed 2020. Blood 11/17/2024 4:28 AM CDT 11/17/2024 5:17 AM CDT Mike Bowman MD LAB BLOOD ORDERABLES Fi nal Result Performing Organization Address City/[facility]/ZIP Co de Phone Number [facility] [place] [address] * (ABNORMAL) PTH (11/17/2024 4:28 AM CDT) [facility] PTH 12(L) 15 - 65 pg/mL Blood 11/17/2024 4:28 AM CDT 11/17/2024 5:17 AM CDT Mike Bowman MD LAB BLOOD ORDERABLES Fi nal Result Performing Organization Address [facility] de Phone Number [facility] [place] [address] * (ABNORMAL) Basic metabolic panel (11/17/2024 4:28 AM CDT) [facility] Sodium 139 135 - 145 mmol/L Potassium, pl 4.3 3.3 - 4.9 mmol/L [facility] Chloride 105 97 - 110 mmol/L [facility] CO2 25 22 - 32 mmol/L [facility] Anion gap 9 2 - 15 mmol/L [facility] BUN 21 6 - 25 mg/dL [facility] Creatinine 0.75 0.60 - 1.10 mg/dL [facility] Glucose 254(H) 70 - 199 mg/dL [facility] Comment: Interpretive Data Fasting glucose >/= 126 mg/dl is diagnostic for diabetes. Fasting is defined as no caloric intake for at least 8 hours. Fasting glucose between 100 mg/dl to 125 mg/dl is diagnostic of prediabetes. In a patient with classic symptoms of hyperglycemia or hyperglycemic crisis, a random glucose >/= 200 mg/dl is diagnostic for diabetes. In the absence of unequivocal hyperglycemia, results should be confirmed by repeat testing. The classification and Diagnosis of Diabetes Diabetes Care 202; 46: S19-S40. Current interpretive data was last revised 2022. Calcium 9.5 8.5 - 10.3 mg/dL [facility] Blood 11/17/2024 4:28 AM CDT 11/17/2024 5:17 AM CDT Mike Bowman MD LAB BLOOD ORDERABLES Fi nal Result Performing Organization Address [facility] Co de Phone Number [facility] [place] [employer] [place] [address] * eGFR (11/16/2024 11:26 PM CDT) eGFR 85 >=60 mL/min/1. 73 m2 Comment: Interpretive Data Reference Interval Normal >/= 90 mL/min/1.73m2 Mildly decreased* 60 - 89 mL/min/1.73m2 Mildly to moderately decreased 45 - 59 mL/min/1.73m2 Moderately to severely decreased 30 - 44 mL/min/1.73m2 Severely decreased 15 - 29 mL/min/1.73m2 Kidney Failure < 15 mL/min/1.73m2 *Relative to young adult level Estimated glomerular filtration rate is determined by the 2020 CKD-EPI equation recommended by the National Kidney Foundation (A Unifying Approach to GFR Estimation: Recommendations of the NKF-ASK Task Force on Reassessing the Inclusion of Race in Diagnosing Kidney Disease, JASN 2020). The CKD-EPI equation should not be used for patients with unstable renal function and has not been validated in children and those over 70. Current interpretive data was last reviewed 2020. Blood 11/16/2024 11:2 6 PM CDT 11/17/2024 12:47 AM CDT Mike Bowman MD LAB BLOOD ORDERABLES Fi nal Result Performing Organization Address [facility] Co de Phone Number [facility] [place] [employer] [place] [address] * Basic metabolic panel (11/16/2024 11:26 PM CDT) Pathologist [facility] Sodium 138 135 - 145 mmol/L Potassium, pl 4.4 3.3 - 4.9 mmol/L [facility] Comment:Repeated and Verifie d Chloride 106 97 - 110 mmol/L [facility] CO2 27 22 - 32 mmol/L [facility] Anion gap 5 2 - 15 mmol/L [facility] BUN 20 6 - 25 mg/dL [facility] Creatinine 0.77 0.60 - 1.10 mg/dL [facility] Glucose 186 70 - 199 mg/dL [facility] Comment: Interpretive Data Fasting glucose >/= 126 mg/dl is diagnostic for diabetes. Fasting is defined as no caloric intake for at least 8 hours. Fasting glucose between 100 mg/dl to 125 mg/dl is diagnostic of prediabetes. In a patient with classic symptoms of hyperglycemia or hyperglycemic crisis, a random glucose >/= 200 mg/dl is diagnostic for diabetes. In the absence of unequivocal hyperglycemia, results should be confirmed by repeat testing. The classification and Diagnosis of Diabetes Diabetes Care 2021; 46: S19-S40. Current interpretive data was last revised 2022. Calcium 9.5 8.5 - 10.3 mg/dL [facility] Comment:Repeated and Verifie d Blood 11/16/2024 11:2 6 PM CDT 11/17/2024 12:47 AM CDT Mike Bowman MD LAB BLOOD ORDERABLES nal Result [facility] [place] [address] * eGFR (11/16/2024 9:13 PM CDT) Pathologist [facility] eGFR See Comment >=60 Comment: Unable to calculate exact result. Interpretive Data Reference Interval Normal >/= 90 mL/min/1.73m2 Mildly decreased* 60 - 89 mL/min/1.73m2 Mildly to moderately decreased 45 - 59 mL/min/1.73m2 Moderately to severely decreased 30 - 44 mL/min/1.73m2 Severely decreased 15 - 29 mL/min/1.73m2 Kidney Failure < 15 mL/min/1.73m2 *Relative to young adult level Estimated glomerular filtration rate is determined by the 2020 CKD-EPI equation recommended by the National Kidney Foundation (A Unifying Approach to GFR Estimation: Recommendations of the NKF-ASK Task Force on Reassessing the Inclusion of Race in Diagnosing Kidney Disease, JASN 2020). The CKD-EPI equation should not be used for patients with unstable renal function and has not been validated in children and those over 70. Current interpretive data was last reviewed 2020. Blood 11/16/2024 9:13 PM CDT 11/16/2024 9:55 PM CDT Mike Bowman MD LAB BLOOD ORDERABLES Ed ited Result - Final [facility] [place] [employer] [place] [address] * Critical Result Callback Chemistry (11/16/2024 9:13 PM CDT) Date Notified [id number] Time Notified [address] [facility] TestName Potassium Plas and Calcium [facility] Called/Read Back Giovanni LOPEZ [facility] Credentials RN [facility] Called By SHANNAN PETERSON Blood 11/16/2024 9:13 PM CDT 11/16/2024 9:55 PM CDT us Mike Bowman MD LAB BLOOD ORDERABLES Fi nal Result [facility] [place] [employer] [place] [address] * PTH (11/16/2024 9:13 PM CDT) PTH 16 15 - 65 pg/mL Blood 11/16/2024 9:13 PM CDT 11/16/2024 9:47 PM CDT Mike Bowman MD LAB BLOOD ORDERABLES Fi nal Result Performing Organization Address [facility] Co de Phone Number [facility] [place] [address] * (ABNORMAL) Hemoglobin A1c (11/16/2024 9:13 PM CDT) Hgb A1C 7.6(H) 4.0 - 5.6 % Estimated Average Glucose 171 mg/dL [facility] Comment: The ADA recommends reporting an estimated Average Glucose (eAG) with all Hemoglobin A1c results using the equation derived from a study of 507 normal and diabetic adults. Minority populations were underrepresented and children were not included. (Diabetes Care 2020; 43(S1): S66-S76). The eAG is not equivalent to a fasting glucose. Blood 11/16/2024 9:13 PM CDT 11/16/2024 9:48 PM CDT Fatemeh Mckeon NP LAB BLOOD ORDERABLES Fin al Result Performing Organization Address [facility] Co de Phone Number [facility] [place] [employer] [place] [address] * Basic metabolic panel (11/16/2024 9:13 PM CDT) Sodium See Comment 135 - 145 mmol/L Comment: Sample investigated and found to be analytically accurate. If results do not match clinical presentation, improper collection (e.g., IV fluid contamination, improper tube type, mislabel) should be considered and re-collection recommended. Telephone report made to: Giovanni Vicente RN on 11/16/2024 23:02:27 CDT by [facility] . Credited: Sample investigated and is suggestive of an improper collection (e.g., IV fluid contamination, improper tube type). Deleted at the Request of Giovanni Vicente RN on 11/16/2024 23:06:25 CDT by [facility] . Potassium, pl See Comment 3.3 - 4.9 mmol/L [facility] Comment: Repeated and Verified Credited: Sample investigated and is suggestive of an improper collection (e.g., IV fluid contamination, improper tube type). Deleted at the Request of Giovanni Vicente RN on 11/16/2024 23:06:25 CDT by [facility] . Chloride See Comment 97 - 110 mmol/L [facility] Comment:Credited: Sample inv estigated and is suggestive of an improper collection (e.g., IV fluid contamination, improper tube type). Deleted at the Request of Giovanni Vicente RN on 11/16/2024 23:06:25 CDT by [facility] . CO2 See Comment 22 - 32 mmol/L [facility] Comment:Credited: Sample inv estigated and is suggestive of an improper collection (e.g., IV fluid contamination, improper tube type). Deleted at the Request of Giovanni Vicente RN on 11/16/2024 23:06:25 CDT by [facility] . Anion gap See Comment 2 - 15 mmol/L [facility] Comment:Credited: Sample inv estigated and is suggestive of an improper collection (e.g., IV fluid contamination, improper tube type). Deleted at the Request of Giovanni Vicente RN on 11/16/2024 23:06:25 CDT by [facility] . BUN See Comment 6 - 25 mg/dL [facility] Comment:Credited: Sample inv estigated and is suggestive of an improper collection (e.g., IV fluid contamination, improper tube type). Deleted at the Request of Giovanni Vicente RN on 11/16/2024 23:06:25 CDT by [facility] . Creatinine See Comment 0.60 - 1.10 mg/dL [facility] Comment:Credited: Sample inv estigated and is suggestive of an improper collection (e.g., IV fluid contamination, improper tube type). Deleted at the Request of Giovanni Vicente RN on 11/16/2024 23:06:25 CDT by [facility] . Glucose See Comment 70 - 199 mg/dL [facility] Comment: Interpretive Data Fasting glucose >/= 126 mg/dl is diagnostic for diabetes. Fasting is defined as no caloric intake for at least 8 hours. Fasting glucose between 100 mg/dl to 125 mg/dl is diagnostic of prediabetes. In a patient with classic symptoms of hyperglycemia or hyperglycemic crisis, a random glucose >/= 200 mg/dl is diagnostic for diabetes. In the absence of unequivocal hyperglycemia, results should be confirmed by repeat testing. The classification and Diagnosis of Diabetes Diabetes Care 202; 46: S19-S40. Current interpretive data was last revised 2022. Credited: Sample investigated and is suggestive of an improper collection (e.g., IV fluid contamination, improper tube type). Deleted at the Request of Giovanni Vicente RN on 11/16/2024 23:06:25 CDT by [facility] . Calcium See Comment 8.5 - 10.3 mg/dL [facility] Comment: Repeated and Verified Critical result called to and read back by Giovanni SINHA) on 11/16/2024 23:03:12 CDT to [facility]. Credited: Sample investigated and is suggestive of an improper collection (e.g., IV fluid contamination, improper tube type). Deleted at the Request of Giovanni Vicente RN on 11/16/2024 23:06:25 CDT by [facility] . Blood 11/16/2024 9:13 PM CDT 11/16/2024 9:55 PM CDT us Mike Bowman MD LAB BLOOD ORDERABLES Ed ited Result - Final [facility] [place] [employer] [place] [address] * (ABNORMAL) POCT glucose (11/16/2024 8:22 PM CDT) [facility] Signature Glucose, POC 241(H) 70 - 199 mg/dL Blood 11/16/2024 8:22 PM CDT 11/16/2024 8:22 PM CDT Mike Bowman MD LAB POCT ORDERABLES - D EVICE Final Result [facility] [place] [address] * eGFR (11/16/2024 5:50 PM CDT) eGFR >90 >=60 mL/min/1. 73 m2 Comment: Interpretive Data Reference Interval Normal >/= 90 mL/min/1.73m2 Mildly decreased* 60 - 89 mL/min/1.73m2 Mildly to moderately decreased 45 - 59 mL/min/1.73m2 Moderately to severely decreased 30 - 44 mL/min/1.73m2 Severely decreased 15 - 29 mL/min/1.73m2 Kidney Failure < 15 mL/min/1.73m2 *Relative to young adult level Estimated glomerular filtration rate is determined by the 2020 CKD-EPI equation recommended by the National Kidney Foundation (A Unifying Approach to GFR Estimation: Recommendations of the NKF-ASK Task Force on Reassessing the Inclusion of Race in Diagnosing Kidney Disease, JASN 2020). The CKD-EPI equation should not be used for patients with unstable renal function and has not been validated in children and those over 70. Current interpretive data was last reviewed 2020. Blood 11/16/2024 5:50 PM CDT 11/16/2024 6:17 PM CDT Mike Bowman MD LAB BLOOD ORDERABLES Fi nal Result Performing Organization Address [facility] Co de Phone Number [facility] [place] [employer] [place] [place] [address] * PTH (11/16/2024 5:50 PM CDT) PTH 18 15 - 65 pg/mL Blood 11/16/2024 5:50 PM CDT 11/16/2024 6:17 PM CDT Mike Bowman MD LAB BLOOD ORDERABLES Fi nal Result Performing Organization Address [facility] Co de Phone Number [facility] [place] [employer] [place] [address] * Basic metabolic panel (11/16/2024 5:50 PM CDT) Sodium 143 135 - 145 mmol/L Potassium, pl 3.9 3.3 - 4.9 mmol/L [facility] Chloride 109 97 - 110 mmol/L [facility] CO2 25 22 - 32 mmol/L [facility] Anion gap 9 2 - 15 mmol/L [facility] BUN 12 6 - 25 mg/dL [facility] Creatinine 0.69 0.60 - 1.10 mg/dL [facility] Glucose 80 70 - 199 mg/dL [facility] Comment: Interpretive Data Fasting glucose >/= 126 mg/dl is diagnostic for diabetes. Fasting is defined as no caloric intake for at least 8 hours. Fasting glucose between 100 mg/dl to 125 mg/dl is diagnostic of prediabetes. In a patient with classic symptoms of hyperglycemia or hyperglycemic crisis, a random glucose >/= 200 mg/dl is diagnostic for diabetes. In the absence of unequivocal hyperglycemia, results should be confirmed by repeat testing. The classification and Diagnosis of Diabetes Diabetes Care 2021; 46: S19-S40. Current interpretive data was last revised 2022. Calcium 9.1 8.5 - 10.3 mg/dL [facility] Blood 11/16/2024 5:50 PM CDT 11/16/2024 6:17 PM CDT Mike Bowman MD LAB BLOOD ORDERABLES Fi nal Result Performing Organization Address City/[facility]/ZIP Co de Phone Number [facility] [place] [employer] [place] [place] [address] * POCT glucose (11/16/2024 5:16 PM CDT) [facility] Signature Glucose, POC 90 70 - 199 mg/dL Blood 11/16/2024 5:16 PM CDT 11/16/2024 5:16 PM CDT Mike Bowman MD LAB POCT ORDERABLES - D EVICE Final Result Performing Organization Address [facility]/ZIP Co de Phone Number [facility] [place] [employer] [place] [address] * eGFR (11/16/2024 12:46 PM CDT) eGFR >90 >=60 mL/min/1. 73 m2 Comment: Interpretive Data Reference Interval Normal >/= 90 mL/min/1.73m2 Mildly decreased* 60 - 89 mL/min/1.73m2 Mildly to moderately decreased 45 - 59 mL/min/1.73m2 Moderately to severely decreased 30 - 44 mL/min/1.73m2 Severely decreased 15 - 29 mL/min/1.73m2 Kidney Failure < 15 mL/min/1.73m2 *Relative to young adult level Estimated glomerular filtration rate is determined by the 2020 CKD-EPI equation recommended by the National Kidney Foundation (A Unifying Approach to GFR Estimation: Recommendations of the NKF-ASK Task Force on Reassessing the Inclusion of Race in Diagnosing Kidney Disease, JASN 2020). The CKD-EPI equation should not be used for patients with unstable renal function and has not been validated in children and those over 70. Current interpretive data was last reviewed 2020. Blood 11/16/2024 12:4 6 PM CDT 11/16/2024 1:00 PM CDT Mike Bowman MD LAB BLOOD ORDERABLES Fi nal Result Performing Organization Address [facility] Co de Phone Number [facility] [place] [employer] [place] [place] [address] * PTH (11/16/2024 12:46 PM CDT) Pathologist [facility] PTH 21 15 - 65 pg/mL Blood 11/16/2024 12:4 6 PM CDT 11/16/2024 1:00 PM CDT Mike Bowman MD LAB BLOOD ORDERABLES Fi nal Result Performing Organization Address [facility] Co de Phone Number [facility] [place] [address] * (ABNORMAL) Comprehensive metabolic panel (11/16/2024 12:46 PM CDT) Pathologist [facility] Sodium 143 135 - 145 mmol/L Potassium, pl 3.7 3.3 - 4.9 mmol/L [facility] Chloride 110 97 - 110 mmol/L [facility] CO2 27 22 - 32 mmol/L [facility] Anion gap 6 2 - 15 mmol/L [facility] BUN 11 6 - 25 mg/dL [facility] Creatinine 0.62 0.60 - 1.10 mg/dL [facility] Glucose 116 70 - 199 mg/dL [facility] Comment: Interpretive Data Fasting glucose >/= 126 mg/dl is diagnostic for diabetes. Fasting is defined as no caloric intake for at least 8 hours. Fasting glucose between 100 mg/dl to 125 mg/dl is diagnostic of prediabetes. In a patient with classic symptoms of hyperglycemia or hyperglycemic crisis, a random glucose >/= 200 mg/dl is diagnostic for diabetes. In the absence of unequivocal hyperglycemia, results should be confirmed by repeat testing. The classification and Diagnosis of Diabetes Diabetes Care 2021; 46: S19-S40. Current interpretive data was last revised 2022. Calcium 9.2 8.5 - 10.3 mg/dL [facility] Bilirubin, total 0.2 0.1 - 1.2 mg/dL [facility] Protein, pl 6.4(L) 6.5 - 8.5 g/dL [facility] Albumin 4.0 3.5 - 5.0 g/dL [facility] Alk phos 45 40 - 130 Units/L [facility] ALT 25 7 - 45 Units/L [facility] AST 30 10 - 45 Units/L [facility] Blood 11/16/2024 12:4 6 PM CDT 11/16/2024 1:00 PM CDT us Mike Bowman MD LAB BLOOD ORDERABLES Fi nal Result [facility] Department [place] [address] * POCT glucose (11/16/2024 12:25 PM CDT) Glucose, POC 118 70 - 199 mg/dL Blood 11/16/2024 12:2 5 PM CDT 11/16/2024 12:25 PM CDT us Mike Bowman MD LAB POCT ORDERABLES - D EVICE Final Result Performing Organization Address [facility] de Phone Number [facility] [place] [employer] [place] [address] * IA AN PROCEDURE PLACEHOLDER (11/16/2024 11:43 AM CDT) Narrative Ventura Yeboah RN - 11/16/2024 11:43 AM CDT Ventura Yeboah RN 11/16/2024 11:43 AM Peripheral IV Catheter Patient location: OR Staff: Supervising provider: Xavier Park MD Placed by: Other staff: Ventura Yeboah RN Preprocedure prep: Prep solution: alcohol PPE: gloves PIV line: Laterality: left Site: wrist Catheter size: 20 g Technique: anatomical landmarks and direct visualization Procedure details: good blood return Number of attempts: 1 Assessment: Events: patient tolerated procedure well with no complications us Xavier Park MD ANESTHESIA ORDERABLES Final Resu lt * POCT glucose (11/16/2024 11:27 AM CDT) Glucose, POC 126 70 - 199 mg/dL Blood 11/16/2024 11:2 7 AM CDT 11/16/2024 11:27 AM CDT us Mike Bowman MD LAB POCT ORDERABLES - D EVICE Final Result Performing Organization Address [facility] Co de Phone Number [facility] [place] [employer] [place] [address] * PTH (11/16/2024 11:23 AM CDT) PTH 48 18 - 59 pg/mL Comment:Intra-operative spec imen. Telephone report made to SONA Palumbo on 11/16/2024 11:50 CDT by [email or web address]. Blood 11/16/2024 11:2 3 AM CDT 11/16/2024 11:47 AM CDT Mike Bowman MD LAB BLOOD ORDERABLES Fi nal Result Performing Organization Address City/[facility] Co de Phone Number [facility] [employer] [place] [address] * (ABNORMAL) PTH (11/16/2024 11:17 AM CDT) PTH 70(H) 18 - 59 pg/mL Blood 11/16/2024 11:1 7 AM CDT 11/16/2024 11:47 AM CDT Mike Bowman MD LAB BLOOD ORDERABLES Fi nal Result Performing Organization Address City/[facility] Co de Phone Number [facility] [employer] [place] [place] [address] * (ABNORMAL) PTH (11/16/2024 11:11 AM CDT) PTH 145(H) 18 - 59 pg/mL Blood 11/16/2024 11:1 1 AM CDT 11/16/2024 11:47 AM CDT Mike Bowman MD LAB BLOOD ORDERABLES Fi nal Result Performing Organization Address City/[facility] Co de Phone Number [facility] [employer] [place] [address] * Surgical pathology (11/16/2024 11:10 AM CDT) Tissue (Parathyroid Gland) 11/16/2024 11:10 AM CDT Narrative PATHOLOGY [facility] - 11/21/2024 4:53 PM CDT EPIC results best viewed via link to PDF [facility], [place] [address] Note to Patients: This report may contain a detailed description of human tissue sent by a health care provider to the laboratory for pathologic evaluation. The content of this report is essential for diagnosis and may provide important critical findings. This information may be unfamiliar to patients to review without a medical professional present. It is advised that the patient review this report in the presence of a health care provider who can answer questions and explain the details. SURGICAL PATHOLOGY REPORT FINAL Patient Name: JOSEFINA MOSQUERA Gender: F : 1960 (Age: 64) Address: [address] [place] [id number] Hospital #: [id number] Taken:11/16/2024 Received:11/16/2024 Reported: 11/21/2024 Patient Type: [facility] OP In Bed Service: Surgery Location: [place] [address] Physician(s): Eric Dudley M.D. Diagnosis: Left upper parathyroid gland, excision (including AFR1): - Hypercellular parathyroid kes/11/21/2024 16:53 By this signature, I attest that the above diagnosis is based upon my personal examination of the slides(and/or other material indicated in the diagnosis). Greta Wooten MD, PhD Report Electronically Reviewed and Signed Out By Greta Wooten MD, PhD 11/21/2024 16:53:39 Intraoperative Consultation: Frozen Section Diagnosis AFR1: Left upper parathyroid gland Parathyroid gland identified By Erik Gallardo M.D., Saadia Perera MS, PA([facility])CM Gross Consultation A: Left upper parathyroid gland Received in formalin labeled patient identifiers and left upper parathyroid gland is a 0.53 g 1.0 x 0.7 x 0.4 cm fragment of red-brown soft tissue with attached fatty tissue that measures 2.0 x 1.0 x 0.3 cm consisting of a 0.8 x 0.4 x 0.3 cm putative lymph node. The sanders-brown tissue and putative lymph node are entirely frozen in AFR1. I personally examined the relevant preparation(s) or a microscopic image of the relevant preparation(s) for the specimen(s) while the surgical procedure was still underway and rendered or confirmed the diagnosis(es) Report Electronically reviewed and Signed out by Erik Gallardo M.D. (A) History: The patient is a 64-year-old woman who presents with hyperparathyroidism. Operative procedure: parathyroidectomy left. Specimen(s) Received: A: Left upper parathyroid gland Gross Description: Received in formalin labeled with the patient's identifiers and designated left upper parathyroid gland is a frozen section remnant and the remainder of the tissue sampled frozen section. The specimen is entirely submitted: AFR1 = frozen remnant; A2 = remainder. Jar 0. sxv/11/16/2024 13:34 PA(s): Alfonso Barton MS, PA ([facility])CM By this signature, I attest that the above diagnosis is based upon my personal examination of the slides(and/or other material). Addenda/Procedures The performance characteristics of some immunohistochemical stains, fluorescence in-situ hybridization tests and immunophenotyping by flow cytometry cited in this report (if any) were determined by the Surgical Pathology and Flow Cytometry Departments at [facility] as part of an ongoing quality control manager program and in compliance with federally mandated regulations drawn from the Clinical Laboratory Improvement Act of 1988 (CLIA '88). Some of these tests rely on the use of analyte specific reagents and are subject to specific labeling requirements by the US Food and Drug Administration. Such diagnostic tests may only be performed in a facility that is certified by the Department of Health and Human Services as a high complexity laboratory under CLIA '88. The FDA has determined that such clearance or approval is not necessary. This test is used for clinical purposes. It should not be regarded as investigational or for research. Nevertheless, federal rules concerning the medical use of analyte specific reagents require that the following disclaimer be attached to the report: This test was developed and its performance characteristics determined by the Surgical Pathology and Flow Cytometry Departments of [facility]. It has not been cleared or approved by the U. S. Food and Drug Administration. IMAGES AND SCANNED DOCUMENTS, IF INCLUDED, ONLY VIEWABLE IN PDF VERSION OF REPORT Mike Bowman MD LAB PATHOLOGY ORDERABLE S Final Result PATHOLOGY [facility] [address] [place], [place] [phone] * POCT glucose (11/16/2024 10:48 AM CDT) Glucose, POC 99 70 - 199 mg/dL Blood 11/16/2024 10:4 8 AM CDT 11/16/2024 10:48 AM CDT us Mike Bowman MD LAB POCT ORDERABLES - D EVICE Final Result Performing Organization Address City/[facility]/ZIP Co de Phone Number [facility] [place] [address] * IA AN ELECTIVE ENDOTRACHEAL AIRWAY, IA AN PROCEDURE PLACEHOLDER (11/16/2024 10:41 AM CDT) Narrative Ventura Yeboah RN - 11/16/2024 10:41 AM CDT Ventura Yeboah RN 11/16/2024 10:42 AM Airway Patient location: OR Urgency: elective Date/time: 11/16/2024 10:21 AM Indications for airway management: anesthesia Difficult airway: no Staff: Supervising provider: Xavier Park MD Placed by: Other staff: Ventura Yeboah RN Emergent airway documentation: Risks and benefits discussed: yes Consent obtained: yes Consent given by: patient Airway prep: Preoxygenated: yes Patient position: sniffing Mask difficulty assessment: 1 - vent by mask Spontaneous ventilation during airway: absent Sedation level during airway: GA Final airway details: Final airway type: endotracheal airway Tube type: NIM tube ETT size: 7.0 mm Cuffed: yes Technique used for successful ETT placement: video laryngoscopy Devices/Methods used in placement: stylet and LTA Insertion site: oral Blade type: Seth Video blade type: Santiago Blade size: 3 Cormack-Lehane (video): grade I - full view of glottis Initial cuff pressure: 26 cm H2O Cuff volume: 7 mL Cuff inflated with: air ETT to lips: 21 cm Placement verified by: auscultation and CO2 detection Airway secured with: silk tape Number of attempts: 1 us Xavier Park MD ANESTHESIA ORDERABLES Final Resu lt * POCT glucose (11/16/2024 9:17 AM CDT) Glucose, POC 133 70 - 199 mg/dL Blood 11/16/2024 9:17 AM CDT 11/16/2024 9:17 AM CDT us Mike Bowman MD LAB POCT ORDERABLES - D EVICE Final Result [facility] [place] [address] * US Soft Tissue Neck (10/25/2024 2:56 PM CDT) Anatomical Region Laterality Modality Head and Neck N/A Ultrasound 10/25/2024 3:11 PM CDT Impressions 10/25/2024 3:15 PM CDT 1. Hypoechoic lesion posterior to the left thyroid lobe and adjacent to the esophagus which is suspicious for parathyroid adenoma. This lesion likely corresponds with the retroesophageal candidate parathyroid lesion identified on 10/24/2024 CT. 2. Postoperative changes of right thyroidectomy. No evidence of tumor recurrence. Dictated by: Daryl Hines M.D. The radiology attending physician has personally reviewed this study, and had reviewed and/or edited this written report and agrees with it. Electronically signed by: Mike Bae M.D. Narrative 10/25/2024 3:15 PM CDT EXAMINATION: US SOFT TISSUE NECK HISTORY: History of hypercalcemia. Candidate parathyroid lesion seen on 10/24/[address] posterior to the esophagus. Reported history of thyroid cancer status post right thyroid lobectomy in 1977 COMPARISON: 10/24/2024 CT FINDINGS: There are postoperative changes of right thyroidectomy. There is no evidence of tumor recurrence in the thyroid bed. There are no suspicious cervical lymph nodes. The remaining left lobe of the thyroid is normal in size. Size left lobe: 3.9 cm craniocaudal, 1.5 cm transverse, 1.5 cm AP. Size isthmus: 0.2 cm AP. There is a sub-centimeter calcification in the left thyroid lobe. Posterior to the left thyroid lobe and adjacent to the esophagus, there is a hypoechoic lesion measuring 8 x 5 x 4 mm with internal Doppler flow. Procedure Note Mike Bae MD - 10/25/2024 EXAMINATION: US SOFT TISSUE NECK HISTORY: History of hypercalcemia. Candidate parathyroid lesion seen on 10/24/[address] posterior to the esophagus. Reported history of thyroid cancer status post right thyroid lobectomy in 1977 COMPARISON: 10/24/2024 CT FINDINGS: There are postoperative changes of right thyroidectomy. There is no evidence of tumor recurrence in the thyroid bed. There are no suspicious cervical lymph nodes. The remaining left lobe of the thyroid is normal in size. Size left lobe: 3.9 cm craniocaudal, 1.5 cm transverse, 1.5 cm AP. Size isthmus: 0.2 cm AP. There is a sub-centimeter calcification in the left thyroid lobe. Posterior to the left thyroid lobe and adjacent to the esophagus, there is a hypoechoic lesion measuring 8 x 5 x 4 mm with internal Doppler flow. IMPRESSION: 1. Hypoechoic lesion posterior to the left thyroid lobe and adjacent to the esophagus which is suspicious for parathyroid adenoma. This lesion likely corresponds with the retroesophageal candidate parathyroid lesion identified on 10/24/2024 CT. 2. Postoperative changes of right thyroidectomy. No evidence of tumor recurrence. Dictated by: Daryl Hines M.D. The radiology attending physician has personally reviewed this study, and had reviewed and/or edited this written report and agrees with it. Electronically signed by: Mike Bae M.D. Mike Bowman MD [facility] [place] PROCEDURES Final Result * CT 4D Parathyroid (10/24/2024 1:29 PM CDT) Anatomical Region Laterality Modality Head and Neck N/A Computed Tomogra phy 10/24/2024 3:36 PM CDT Impressions 10/24/2024 6:34 PM CDT There is a retroesophageal candidate lesion for parathyroid adenoma, measuring up to 12 mm, with type A enhancement pattern. Dictated by: James Moulton, M.D. The radiology attending physician has personally reviewed this study, and had reviewed and/or edited this written report and agrees with it. Electronically signed by: Ramo Turner M.D. Narrative 10/24/2024 6:34 PM CDT EXAMINATION: CT of the neck without and with contrast HISTORY: Hyperparathyroidism TECHNIQUE: CT of the neck was performed according to the parathyroid protocol without contrast and with intravenous contrast after arterial and venous delays. Contrast information: 90 mL Optiray-350 IV COMPARISON: Chest CT 06/28/2015 FINDINGS: Surgical changes of right thyroid lobectomy. There are subcentimeter left thyroid nodules; no follow-up thyroid ultrasound necessary per ACR guidelines. There is a candidate lesion for parathyroid adenoma measuring 4 x 10 x 12 mm (AP x TRV x CC) located posterior to the esophagus. The lesion is hypodense compared to the thyroid on (series 3 image #36) and enhances similarly to the thyroid gland on arterial (series 8 image #36) and venous phases (series 13 image #38). There is a serpiginous polar vessel which extends to this candidate lesion. This candidate lesion does not appear to have a fatty hilum which would be suggestive of a lymph node. Scattered subcentimeter lymph nodes are seen in the neck. None are pathologically enlarged or abnormally enhancing. The muscles of the neck are normal. Vessels of the neck demonstrate normal course and caliber. Prominent soft tissue at the base of the tongue with multiple gentle lobulations, favored to represent prominent lingual tonsillar tissue. The visualized airway is widely patent. Cervical spine demonstrates 2 mm of C3-C4 anterolisthesis and 3 mm of C4-C5 anterolisthesis, and 3 mm of C7-T1 anterolisthesis. Multilevel cervical disc degeneration, with no high-grade spinal canal narrowing. Lung apices are clear. Procedure Note Ramo Turner MD - 10/24/2024 EXAMINATION: CT of the neck without and with contrast HISTORY: Hyperparathyroidism TECHNIQUE: CT of the neck was performed according to the parathyroid protocol without contrast and with intravenous contrast after arterial and venous delays. Contrast information: 90 mL Optiray-350 IV COMPARISON: Chest CT 06/28/2015 FINDINGS: Surgical changes of right thyroid lobectomy. There are subcentimeter left thyroid nodules; no follow-up thyroid ultrasound necessary per ACR guidelines. There is a candidate lesion for parathyroid adenoma measuring 4 x 10 x 12 mm (AP x TRV x CC) located posterior to the esophagus. The lesion is hypodense compared to the thyroid on (series 3 image #36) and enhances similarly to the thyroid gland on arterial (series 8 image #36) and venous phases (series 13 image #38). There is a serpiginous polar vessel which extends to this candidate lesion. This candidate lesion does not appear to have a fatty hilum which would be suggestive of a lymph node. Scattered subcentimeter lymph nodes are seen in the neck. None are pathologically enlarged or abnormally enhancing. The muscles of the neck are normal. Vessels of the neck demonstrate normal course and caliber. Prominent soft tissue at the base of the tongue with multiple gentle lobulations, favored to represent prominent lingual tonsillar tissue. The visualized airway is widely patent. Cervical spine demonstrates 2 mm of C3-C4 anterolisthesis and 3 mm of C4-C5 anterolisthesis, and 3 mm of C7-T1 anterolisthesis. Multilevel cervical disc degeneration, with no high-grade spinal canal narrowing. Lung apices are clear. IMPRESSION: There is a retroesophageal candidate lesion for parathyroid adenoma, measuring up to 12 mm, with type A enhancement pattern. Dictated by: James Moulton M.D. The radiology attending physician has personally reviewed this study, and had reviewed and/or edited this written report and agrees with it. Electronically signed by: Ramo Turner M.D. Mike Bowman MD IM CT PROCEDURES Final Result from Last 3 Months Insurance [facility] Address: [facility] [address] [place] [address] [facility] MEDICARE FOR LIFE Advance Directives For more information, please contact: [phone] * Full Code (Latest Code Status on File) Date Activated Date Inactivated Comments 11/16/2024 1:57 PM 11/17/2024 9:11 PM Care Teams Dietary Services Manager Relationship Specialty Start Date End Date Gerber Bill MD [address] [place] [id number] PCP - General Family Medicine 11/08/24
--- OUTSIDE RECORDS SUMMARY | 2024-12-31 08:13 | XMS_ITS ---
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 Past Treatment and Therapy Plans No past plan information found. Lifetime Dose Tracking * Chemical Lifetime Dose Automatic Entry Manual Entr y DLP 898 mGycm 898 mGycm 0 mGycm
[2024-12-31 08:46] LABS: Hematocrit 34.5 % (37.0-47.0); Hemoglobin 11.2 g/dL (12.0-15.0); Mean Corpuscular HGB Conc 32.5 g/dl (32-36); Mean Corpuscular Hemoglobin 32.7 pg (26-34); Mean Corpuscular Volume 100.9 fl (80-100); Platelet Count Result 380 k/mm3 (150-375); Red Blood Count 3.42 M/mm3 (4.2-5.4); White Blood Count 5.9 K/mm3 (4.5-10.0)
[2024-12-31 09:08] LABS: Alanine Aminotransferase 25 U/L (6-35); Albumin Level 4.4 g/dL (3.5-5.1); Alkaline Phosphatase 45 U/L (38-126); Anion Gap 8 mmol/L (4-12); Aspartate Amino Transferase 37 U/L (14-36); Bilirubin,Total 0.5 mg/dL (0.2-1.3); Blood Urea Nitrogen 21 mg/dL (7-17); Calcium 7.8 mg/dL (8.4-10.2); Carbon Dioxide 24 mmol/L (22-30); Chloride 103 mmol/L (98-107); Cholesterol 241 mg/dL (0-200); Estimated Glomerular Filt Rate > 60; Glucose 236 mg/dL (65-110); Potassium 3.9 mmol/L (3.4-5.0); Sodium 135 mmol/L (137-145); Total Protein 7.1 g/dL (6.3-8.2); Triglycerides 59 mg/dL (<150)
[2024-12-31 09:44] LABS: Thyroid Stimulating Hormone 2.240 uIU/mL (0.465-4.680)
[2024-12-31 09:51] LABS: HDL Direct 165 mg/dL
[2024-12-31 10:03] LABS: Vitamin B12 718.0 pg/mL (239-931)
[2024-12-31 11:22] LABS: Free T4 Free Thyroxine 1.15 ng/dL (0.78-2.19)
== END 2024-12-31 08:05 | disposition home or self-care (01) ==
LOC: ANHLAB 08:07
PROVIDERS: PCP Family Medicine; Visit Provider Nurse Practitioner Family
DX: E78.5 Hyperlipidemia, unspecified (principal); E10.9 Type 1 diabetes mellitus without complications; I10 Essential (primary) hypertension; Z13.21 Encounter for screening for nutritional disorder
CPT/HCPCS: 36415; 80053; 80061; 82607; 84439; 84443; 85027